=== PATIENT | female | born 1945 | race Caucasian/White ===

== ENCOUNTER 2024-08-29 06:10 | Inpatient (IN) | payer MEDICARE, SELFPAY ==
[2024-08-29] VITALS (21 sets, daily range): BP systolic 103–168; BP diastolic 63–116; PULSE 73–125; RESP 18–30; TEMP 36.4–37; O2SAT 84–99; BMI 22.3; BMI 26.2
--- NOTE | 2024-08-29 06:10 | ECG_ITS ---
APPROVED REPORT Exam: Resting ECG HR:110 bpm ECG Measurements Heart Rate 110 AXES QRSd 143 QRS 70 QT 389 T -67 QTc 454 Conclusion ATRIAL FIBRILLATION WITH RAPID VENTRICULAR RESPONSE LEFT BUNDLE BRANCH BLOCK [120+ ms QRS DURATION, 80+ ms Q/S IN V1/V2, 85+ ms R IN I/aVL/V5/V6] ABNORMAL ECG INTERPRETATION BASED ON A DEFAULT AGE OF 41 YEARS UNCONFIRMED REPORT Electronically signed by : Jose Alejandro Andrea MD 08/30/2024 08:46:59
--- NOTE | 2024-08-29 06:10 | XR_ITS ---
PROCEDURE INFORMATION: Exam: XR Chest Exam date and time: 08/29/2024 6:51 AM Age: 79 years old Clinical indication: Shortness of breath and tachypnea; Additional info: SOA TECHNIQUE: Imaging protocol: Radiologic exam of the chest. Views: 1 view. COMPARISON: No relevant prior studies available. FINDINGS: Lungs: Streaky airspace opacities in lower lobes could be attributed to atelectasis versus developing pneumonia/aspiration in the appropriate clinical context. Pleural spaces: Unremarkable. No pleural effusion. No pneumothorax. Heart/Mediastinum: Cardiomegaly noted. Bones/joints: Unremarkable. IMPRESSION: Streaky airspace opacities in lower lobes could be attributed to atelectasis versus developing pneumonia/aspiration in the appropriate clinical context.
--- NOTE | 2024-08-29 06:17 | CT_ITS ---
PROCEDURE INFORMATION: Exam: CTA Chest With Contrast Exam date and time: 08/29/2024 7:40 AM Age: 79 years old Clinical indication: Shortness of breath and tachypnea; Additional info: SOA hypoxia tachy copd. Flu exposure TECHNIQUE: Imaging protocol: Computed tomographic angiography of the chest with contrast. Exam focused on the arteries. 3D rendering (Not supervised by radiologist): MIP and/or 3D reconstructed images were created by the technologist. Radiation optimization: All CT scans at this facility use at least one of these dose optimization techniques: automated exposure control; mA and/or kV adjustment per patient size (includes targeted exams where dose is matched to clinical indication); or iterative reconstruction. Contrast material: ISOVUE 370; Contrast volume: 70 ml; Contrast route: INTRAVENOUS (IV); COMPARISON: CR XR CHEST PORTABLE 08/29/2024 6:51 AM FINDINGS: Pulmonary arteries: No evidence of pulmonary embolus to the segmental level. Aorta: No aneurysm of the ascending aorta. No dissection of the aorta. 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 Lungs: Mild panlobular emphysematous changes Pleural spaces: Unremarkable. No pneumothorax. No pleural effusion. Heart: There is calcification of the aortic valve annulus. There is calcification of the mitral valve annulus. Coronary arteries: Coronary artery calcifications may indicate coronary artery disease. Lymph nodes: 4 x 1.7 cm well-delineated mass anterior to the ascending aorta measures 50 Hounsfield units (series 5, image 56). This may represent lymphadenopathy or tumor.. Gallbladder and biliary ducts: The common duct is prominent. It measures 22 millimeters. This may be due to post cholecystectomy state and elderly status. However, if biliary obstruction is suspected clinically, recommend further evaluation Pancreas: Pancreatic atrophy Kidneys: Nonobstructing renal calculi. Severe left renal atrophy. 2 cm simple cyst left kidney . No follow-up imaging recommended . Bones/joints: Unremarkable. No acute fracture. Soft tissues: Unremarkable. IMPRESSION: 1. No evidence of pulmonary embolus to the segmental level. 2. No aneurysm of the ascending aorta. 3. No dissection of the aorta. 4. 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 5. 4 x 1.7 cm well-delineated mass anterior to the ascending aorta measures 50 Hounsfield units (series 5, image 56). This may represent lymphadenopathy or tumor.. COMMENTS: Consistent with the [employer]'s Incidental Findings Committee white paper (J Am Jer Radiol 2018): Any incidental renal lesion less than 1 cm or classified as too small to characterize, or any incidental cystic renal lesion characterized as simple-appearing, is likely benign. No follow-up imaging is recommended for these lesions per consensus recommendations based on imaging criteria.
--- NOTE | 2024-08-29 06:20 | [facility].EDCP ---
Discharge Plan Disposition Patient Disposition: Admitted Prescriptions Prescriptions: No Action metoprolol succinate 100 mg Tablet Extended Release 24 Hr 100 mg PO DAILY tramadol 50 mg Tablet 50 mg PO TID PRN (Reason: Pain, Moderate) famotidine 20 mg Tablet 20 mg PO DAILY gabapentin 300 mg Capsule 300 mg PO DAILY bumetanide 1 mg Tablet 1 mg PO DAILY rosuvastatin 20 mg Tablet 20 mg PO DAILY febuxostat 40 mg Tablet 40 mg PO DAILY Xarelto 15 mg Tablet 15 mg PO DAILY Referrals Follow up/Referrals: Mariam Chairez DO [Primary Care Provider] - See instructions Clinical Impressions Clinical Impression: Altered mental status, COPD exacerbation, Acute respiratory failure with hypoxia and hypercarbia Print Language Print Language: [place] Discharge ED Provider: Misa Quezada HPI <Misa Quezada MD - Last Filed: 08/29/24 07:03> General Chief Complaint: Shortness of Breath/Dyspnea Stated Complaint: SOA Time Seen by Provider: 08/29/24 06:10 History of Present Illness HPI narrative: 79-year-old female with a history of COPD reportedly on 2 L nasal cannula at home presents to the ER with EMS for shortness of breath. According to EMS, family on scene reported that the patient has been having cough and shortness of breath for the last few days but woke up around midnight with worsening symptoms. When EMS arrived patient was only saturating in the low 80s. They gave her 1 DuoNeb and 125 mg IV Solu-Medrol prior to arrival. Patient did not receive any other medications in route. They report that their twelve-lead showed a left bundle branch block. Patient reports she has been sick for the last 1 to 2 days with worsening cough, she reports shortness of breath. She denies chest pain, headache, dizziness, numbness, tingling, weakness, abdominal pain, nausea, vomiting, diarrhea, dysuria, hematuria, or other associated symptoms. Reportedly patient has an inoperable aortic aneurysm, she is not having chest pain, abdominal pain, neck pain, or any neurologic deficits aside from confusion. Patient's daughter presented to bedside later in the encounter and reports the aortic aneurysm is a small, approximately 3.5 cm abdominal aortic aneurysm. She reports that the patient gets most of her care at [place], most recent hospitalization was over the summer with pneumonia at [facility]. She also reports that influenza is going through their house and she believes the patient likely caught this. She states the patient has been sick for couple days but was refusing to come to the hospital until she got bad enough tonight she finally consented. She also reports that patient does have a cardiac history with multiple stents, unknown if she ever had an NV. Related Data Home Medications ?Medication ?Instructions ?Recorded ?Confirmed bumetanide 1 mg tablet 1 mg PO DAILY 08/29/24 08/29/24 famotidine 20 mg tablet 20 mg PO DAILY 08/29/24 08/29/24 febuxostat 40 mg tablet 40 mg PO DAILY 08/29/24 08/29/24 gabapentin 300 mg capsule 300 mg PO DAILY 08/29/24 08/29/24 metoprolol succinate 100 mg 100 mg PO DAILY 08/29/24 08/29/24 tablet,extended release 24 hr rivaroxaban 15 mg tablet (Xarelto) 15 mg PO DAILY 08/29/24 08/29/24 rosuvastatin 20 mg tablet 20 mg PO DAILY 08/29/24 08/29/24 tramadol 50 mg tablet 50 mg PO TID PRN Pain, Moderate 08/29/24 08/29/24 Allergies Allergy/AdvReac Type Severity Reaction Status Date / Time No Known Allergies Allergy Verified 08/29/24 06:42 [facility] <Misa Quezada MD - Last Filed: 08/29/24 07:03> [facility] Disclaimer: The information contained in this section may have been updated after the patient was seen, as this information can be updated by other users. Social History (Updated 08/29/24 @ 07:03 by Misa Quezdaa MD) Smoking Status: Never smoker alcohol intake: never current occupational status: other Travel in the last 8 weeks: None Have you lived/traveled outside [place] in past 30 days?: No Contact w/someone who lives/traveled outside US past 30 days?: No Exposure to someone with infectious disease in past 14 days?: No Do you have a fever (greater than 100.4 F or 38 C)?: No Have you tested positive for COVID-19: No Exposed to someone with COVID-19 in past 14 days?: No Do you have a sore throat?: No Do you have a cough?: No Do you have any weakness?: No Do you have any diarrhea?: No Are you experiencing any unusual bleeding?: No Do you have any muscle aches/pain?: No Do you have any abdominal pain?: No Are you experiencing loss of taste or smell?: No <Misa Quezada MD - Last Filed: 08/29/24 07:03> ROS Obtained: Yes Systems reviewed as appropriate & no additional complaints except as documented Per HPI Physical Exam <Misa Quezada MD - Last Filed: 08/29/24 07:03> General General appearance: alert Comment: Pursed lip breathing, ill-appearing Head Head exam: atraumatic and normocephalic Eye Eye exam: Present PERRL and EOMI ENT ENT exam: Present mucous membranes moist and other (Nasal cannula in place) Neck Neck exam: Present normal inspection, full ROM and trachea midline Chest Chest inspection: Present symmetric chest wall rise; Absent tenderness Respiratory Respiratory exam: Present respiratory distress, wheezes (Faint end expiratory) and other (Saturating 82 to 84% on 3 L nasal cannula); Absent normal lung sounds bilaterally (Significantly diminished breath sounds throughout; pursed lip breathing, speaking in short sentences) or stridor Cardiovascular Cardiovascular exam: Present normal rhythm and bradycardia Abdominal Exam Abdominal exam: Present soft; Absent distention or tenderness Extremities Exam Extremities exam: Present full ROM; Absent edema Neurological Exam Neurological exam: Present alert and oriented X3; Absent motor sensory deficit Psychiatric Psychiatric exam: Present normal affect and normal mood Skin Skin exam: Present warm and dry HEART Score <Misa Quezada MD - Last Filed: 08/29/24 07:03> HEART Score HEART Score assessment performed?: No Procedures <Misa Quezada MD - Last Filed: 08/29/24 07:03> Miscellaneous Procedure Procedure Performed: Limited Cardiac Ultrasound Indication: Shortness of breath Identified cardiac views: [-Cardiac parasternal long axis] [-Cardiac parasternal short axis] [-Cardiac apical four-chamber] [-Cardiac subxiphoid] Subxiphoid was the best view with patient's anatomy Findings: Cardiac activity present, patient has wall motion abnormality along the septum, no pericardial effusion, no right heart strain, suspect reduced ejection fraction, myocardium of the left ventricle appears thickened Impression: - Cardiac activity present, patient has wall motion abnormality along the septum, no pericardial effusion, no right heart strain, suspect reduced ejection fraction, myocardium of the left ventricle appears thickened Images were saved to permanent archive The study was technically adequate CPT: 52636 This study was performed by me, and I personally interpreted all images/videos. Based on my clinical judgement, these images were adequate and did not necessitate further imaging. Limited lung ultrasound A focused ultrasound exam of the pleural spaces was performed to evaluate for pneumothorax, pulmonary edema, pleural effusion and/or consolidation. The ultrasound was performed with the following indications, as noted in the H&P: Shortness of breath, hypoxia Identified structures: Bilateral thoracic cavities were examined. Findings: Lung sliding: -Present bilaterally B-lines: Present in the bilateral anterior and lateral lung wilkerson Pleural effusion: -Absent bilaterally Consolidation: Absent bilaterally Impression: - Pneumothorax absent bilaterally - Pleural effusion absent bilaterally - B-lines present bilaterally - Consolidation absent bilaterally Images were saved to permanent archive The study was technically adequate CPT 43492-07 This study was performed by me, and I personally interpreted all images/videos. Based on my clinical judgement, these images were adequate and did not necessitate further imaging. Critical Care <Misa Quezada MD - Last Filed: 08/29/24 07:03> Critical Care Time Critical Care Time: Yes Attestation: On 08/29/24, the high probability of a clinically significant, sudden or life threatening deterioration of the following system(s) (respiratory) required my full and direct attention, intervention and personal management. The time I documented below is in addition to time spent performing reported procedures but includes the following listed in this critical care notation. Total Time Total Critical Care Time: 35 <Steff Mittal MD - Last Filed: 08/29/24 08:04> Total Time Total Critical Care Time: 65 Medical Decision Making <Misa Quezada MD - Last Filed: 08/29/24 07:03> [place] Inquiry Pt receiving controlled substance: No Vital Signs Vital Signs: 08/29/24 06:10 08/29/24 06:50 08/29/24 06:50 Temperature 98.1 F Temperature Source Oral Pulse Rate 125 H Pulse Rate [Radial] 115 H Respiratory Rate 26 H 26 H Blood Pressure 168/116 H Blood Pressure [Right Arm] 159/108 H Blood Pressure Mean [Right Arm] 125 Blood Pressure Position Sitting Blood Pressure Position [Right Arm] Supine 02 Sat by Pulse Oximetry 84 L 95 Oxygen Delivery Method Nasal Cannula BiPAP Oxygen Flow Rate (LPM) 3 Fraction of Inspired Oxygen 50 08/29/24 07:00 08/29/24 08:00 Temperature Temperature Source Pulse Rate 112 H 102 H Pulse Rate [Radial] Respiratory Rate Blood Pressure 103/63 L 157/95 H Blood Pressure [Right Arm] Blood Pressure Mean [Right Arm] Blood Pressure Position Blood Pressure Position [Right Arm] 02 Sat by Pulse Oximetry 94 L 99 Oxygen Delivery Method BiPAP BiPAP Oxygen Flow Rate (LPM) Fraction of Inspired Oxygen Lab Data Labs: Lab Results 08/29/24 06:10: VBG pH 7.28 L, VBG pCO2 65.8 H, VBG pO2 47.6 H, VBG HCO3 29.9, VBG Total CO2 32.0 H, VBG O2 Saturation 81.7 H, VBG Base Excess 3.1 H, VBG Lactic Acid 2.1 H 08/29/24 06:25: WBC 5.6, RBC 4.79, Hgb 14.5, Hct 45.6, MCV 95.2, MCH 30.3, MCHC 31.8, RDW 13.4, Plt Count 130 L, MPV 9.6, Neut % (Auto) 71.4, Lymph % (Auto) 8.3 L, Hooker % (Auto) 19.6 H, Eos % (Auto) 0.0 L, Baso % (Auto) 0.5, Neut # (Auto) 4.0, Lymph # (Auto) 0.5 L, Hooker # (Auto) 1.1 H, Eos # (Auto) 0.0, Baso # (Auto) 0.0, PT 12.3, INR 1.11 H, Sodium 139, Potassium 4.5, Chloride 97 L, Carbon Dioxide 33 H, Anion Gap 13.5, BUN 30 H, Creatinine 1.20 H, Estimated Creat Clear 36, Estimated GFR 43 L, Est GFR ( Amer) 53 L, Glucose 140 H, Lactate 1.8, Calcium 9.0, Total Bilirubin 0.8, AST 32, ALT 21, Alkaline Phosphatase 96, Troponin I 0.02, Total Protein 6.7, Albumin 4.2, Globulin 2.5, Albumin/Globulin Ratio 1.7 08/29/24 06:25 08/29/24 06:25 Response Orders (Tests/Meds): ED MEDICATIONS Generic Name Dose Route Start Last Admin Trade Name Freq PRN Reason Stop Dose Admin Albuterol/Ipratropium 9 ml 08/29/24 07:56 Ipratropium/Albuterol 3 Ml [facility] 08/29/24 07:57 ONCE ONE Ceftriaxone Sodium 1 gm/ 50 mls @ 100 mls/hr 08/29/24 07:56 Sodium Chloride IV 08/29/24 08:25 ONCE ONE Azithromycin 500 mg/ Sodium 250 mls @ 250 mls/hr 08/29/24 07:56 Chloride IV 08/29/24 07:57 ONCE ONE Magnesium Sulfate 2 gm in 50 mls @ 50 mls/hr 08/29/24 07:56 Magnesium Sulfate 2gm/50ml Premix IV 08/29/24 08:55 ONCE ONE Iopamidol 70 ml 08/29/24 07:50 08/29/24 07:51 Iopamidol-370 (76%);100ml Bottle IV 08/29/24 07:51 70 ml ONCE ONE Administration Sodium Chloride 50 ml 08/29/24 07:50 08/29/24 07:51 0.9 % Sodium Chloride 50 Ml Vial IV 08/29/24 07:51 50 ml ONCE ONE Administration Sodium Chloride 10 ml 08/29/24 07:50 08/29/24 07:52 Sodium Chloride 0.9% 10ml Syr (Rad Only) IV 09/28/24 07:49 10 ml NEEDED PRN Administration Maintain IV Site Discontinued Medications Generic Name Dose Route Start Last Admin Trade Name Guru PRN Reason Stop Dose Admin Albuterol/Ipratropium 9 ml 08/29/24 06:16 08/29/24 06:48 Ipratropium/Albuterol 3 Ml [facility] 08/29/24 06:17 9 ml ONCE ONE Administration Nitroglycerin 0.4 mg 08/29/24 06:40 08/29/24 06:44 Nitroglycerin 0.4mg Sl Tablet SL 08/29/24 06:41 0.4 mg ONCE ONE Administration ORDERS Category Date Time Status CT angio chest PE protocol Stat Cat Scan 08/29/24 06:[address] head/brain wo con Stat Cat Scan 08/29/24 06:33 Taken CXR --portable [XR chest portable] Stat Exams 08/29/24 06:10 Completed POCUS Point of Care (ER Only) Stat Exams 02/16/25 06:21 Ordered BNP [NT Pro Brain Natriuretic Pep.] Stat Lab 08/29/24 07:02 Ordered CBC w/Auto Diff [Complete Blood Count Auto Diff] Stat Lab 08/29/24 06:25 Completed CMP [Comprehensive Metabolic Panel] Stat Lab 08/29/24 06:25 Completed Full Resp Panel w/COVID ([facility]) Routine Lab 08/29/24 06:25 Received Lactic Acid Stat Lab 08/29/24 06:25 Completed PT INR [Prothrombin Time INR] Stat Lab 08/29/24 06:25 Completed Trop I [Troponin I] Stat Lab 08/29/24 06:25 Completed Troponin I Q3H Lab 08/29/24 09:15 Ordered Troponin I Q3H Lab 08/29/24 12:15 Ordered Urinalysis and Microscopic Stat Lab 08/29/24 06:33 Ordered Blood Culture Stat Micro 08/29/24 06:33 Received VBG [Venous Blood Gas] Stat RT 08/29/24 06:10 Completed ECG Request Stat Y 08/29/24 06:10 Ordered MDM Narrative Medical Decision Narrative: In summary, this 79-year-old female with a reported history of COPD likely not at goal therapy presents to the emergency department today with shortness of breath, cough, difficulty breathing. On initial evaluation patient is tachycardic but hypertensive, tachypneic, pursed lip breathing, diminished breath sounds throughout with end expiratory wheezing, trace bilateral lower extremity pitting edema, confused, oriented only to self, GCS 14 with no localizing neurologic deficits. Differential diagnosis includes but is not limited to ACS, PE, fluid overload, electrolyte abnormality, hypercarbia, COPD exacerbation, viral upper respiratory infection, pneumonia, pneumothorax, altered mental status could be related to intracranial bleed, urinary tract infection, among others. Based on these concerns, I ordered serum labs, cardiac workup, chest x-ray, VBG, urine studies. ECG personally interpreted demonstrates atrial fibrillation rapid ventricular response, rate 110, normal axis, normal QTc, patient has evidence of left bundle branch block, no previous study for comparison, no STEMI. [id number] ultrasound personally performed and interpreted at bedside demonstrates diminished septal squeeze, left ventricle appears thickened, ejection fraction is likely reduced based on the excursion of the mitral valve, patient has B-lines throughout the lung wilkerson as well concerning for fluid overload. Patient was only saturating in the low 80s on nasal cannula and was transition to nonrebreather, I called respiratory therapy for DuoNebs and BiPAP. Patient received DuoNebs initially for treatment. With the findings on ultrasound and her respiratory status, with her persistent hypertension, administered 1 dose of sublingual nitro. Labs personally reviewed demonstrate patient has respiratory acidosis with hypercarbia, hypoxia, lactic on VBG 2.1, patient is being started on BiPAP. No leukocytosis or anemia, mild thrombocytopenia with platelets 130. Reassessment while patient is receiving the DuoNebs demonstrates patient is having improved air movement, she is now exhibiting more wheezing, with her improved air movement I do appreciate Rales in the right lower lobe. XR personally interpreted demonstrates no pneumothorax, no obvious lobar infiltrate, patient does seem to have rightward shift Of the mediastinum and cardiac silhouette. Possible infiltrate along the right cardiac border. This will be better evaluated on CT imaging. Radiology read pending. We have attempted to contact [facility] to retrieve recent records for the patient. No records have been received at this time. Patient is breathing more comfortably on BiPAP with improved oxygenation. Her respiratory rate has improved as well. Mental status is clearing. Patient is now oriented to self and location, still disoriented to year. Patient handed off to Dr. Mittal physician shift change for further management and disposition pending additional labs and CT imaging. <Steff Mittal MD - Last Filed: 08/29/24 08:04> Vital Signs Vital Signs: 08/29/24 06:10 08/29/24 06:50 08/29/24 06:50 Temperature 98.1 F Temperature Source Oral Pulse Rate 125 H Pulse Rate [Radial] 115 H Respiratory Rate 26 H 26 H Blood Pressure 168/116 H Blood Pressure [Right Arm] 159/108 H Blood Pressure Mean [Right Arm] 125 Blood Pressure Position Sitting Blood Pressure Position [Right Arm] Supine 02 Sat by Pulse Oximetry 84 L 95 Oxygen Delivery Method Nasal Cannula BiPAP Oxygen Flow Rate (LPM) 3 Fraction of Inspired Oxygen 50 08/29/24 07:00 08/29/24 08:00 Temperature Temperature Source Pulse Rate 112 H 102 H Pulse Rate [Radial] Respiratory Rate Blood Pressure 103/63 L 157/95 H Blood Pressure [Right Arm] Blood Pressure Mean [Right Arm] Blood Pressure Position Blood Pressure Position [Right Arm] 02 Sat by Pulse Oximetry 94 L 99 Oxygen Delivery Method BiPAP BiPAP Oxygen Flow Rate (LPM) Fraction of Inspired Oxygen Lab Data Lab results reviewed: Yes I reviewed the patient's lab results. Labs: Lab Results 08/29/24 06:10: VBG pH 7.28 L, VBG pCO2 65.8 H, VBG pO2 47.6 H, VBG HCO3 29.9, VBG Total CO2 32.0 H, VBG O2 Saturation 81.7 H, VBG Base Excess 3.1 H, VBG Lactic Acid 2.1 H 08/29/24 06:25: WBC 5.6, RBC 4.79, Hgb 14.5, Hct 45.6, MCV 95.2, MCH 30.3, MCHC 31.8, RDW 13.4, Plt Count 130 L, MPV 9.6, Neut % (Auto) 71.4, Lymph % (Auto) 8.3 L, Hooker % (Auto) 19.6 H, Eos % (Auto) 0.0 L, Baso % (Auto) 0.5, Neut # (Auto) 4.0, Lymph # (Auto) 0.5 L, Hooker # (Auto) 1.1 H, Eos # (Auto) 0.0, Baso # (Auto) 0.0, PT 12.3, INR 1.11 H, Sodium 139, Potassium 4.5, Chloride 97 L, Carbon Dioxide 33 H, Anion Gap 13.5, BUN 30 H, Creatinine 1.20 H, Estimated Creat Clear 36, Estimated GFR 43 L, Est GFR ( Amer) 53 L, Glucose 140 H, Lactate 1.8, Calcium 9.0, Total Bilirubin 0.8, AST 32, ALT 21, Alkaline Phosphatase 96, Troponin I 0.02, Total Protein 6.7, Albumin 4.2, Globulin 2.5, Albumin/Globulin Ratio 1.7 Response Orders (Tests/Meds): ED MEDICATIONS Generic Name Dose Route Start Last Admin Trade Name Freq PRN Reason Stop Dose Admin Albuterol/Ipratropium 9 ml 08/29/24 07:56 Ipratropium/Albuterol 3 Ml Neb [facility] 08/29/24 07:57 ONCE ONE Ceftriaxone Sodium 1 gm/ 50 mls @ 100 mls/hr 08/29/24 07:56 Sodium Chloride IV 08/29/24 08:25 ONCE ONE Azithromycin 500 mg/ Sodium 250 mls @ 250 mls/hr 08/29/24 07:56 Chloride IV 08/29/24 07:57 ONCE ONE Magnesium Sulfate 2 gm in 50 mls @ 50 mls/hr 08/29/24 07:56 Magnesium Sulfate 2gm/50ml Premix IV 08/29/24 08:55 ONCE ONE Iopamidol 70 ml 08/29/24 07:50 08/29/24 07:51 Iopamidol-370 (76%);100ml Bottle IV 08/29/24 07:51 70 ml ONCE ONE Administration Sodium Chloride 50 ml 08/29/24 07:50 08/29/24 07:51 0.9 % Sodium Chloride 50 Ml Vial IV 08/29/24 07:51 50 ml ONCE ONE Administration Sodium Chloride 10 ml 08/29/24 07:50 08/29/24 07:52 Sodium Chloride 0.9% 10ml Syr (Rad Only) IV 09/28/24 07:49 10 ml NEEDED PRN Administration Maintain IV Site Discontinued Medications Generic Name Dose Route Start Last Admin Trade Name Freq PRN Reason Stop Dose Admin Albuterol/Ipratropium 9 ml 08/29/24 06:16 08/29/24 06:48 Ipratropium/Albuterol 3 Ml Neb [facility] 08/29/24 06:17 9 ml ONCE ONE Administration Nitroglycerin 0.4 mg 08/29/24 06:40 08/29/24 06:44 Nitroglycerin 0.4mg Sl Tablet SL 08/29/24 06:41 0.4 mg ONCE ONE Administration ORDERS Category Date Time Status CT angio chest PE protocol Stat Cat Scan 08/29/24 06:[address] head/brain wo con Stat Cat Scan 08/29/24 06:33 Taken CXR --portable [XR chest portable] Stat Exams 08/29/24 06:10 Completed POCUS Point of Care (ER Only) Stat Exams 08/29/24 06:21 Ordered BNP [NT Pro Brain Natriuretic Pep.] Stat Lab 08/29/24 07:02 Ordered CBC w/Auto Diff [Complete Blood Count Auto Diff] Stat Lab 08/29/24 06:25 Completed CMP [Comprehensive Metabolic Panel] Stat Lab 08/29/24 06:25 Completed Full Resp Panel w/COVID ([facility]) Routine Lab 08/29/24 06:25 Received Lactic Acid Stat Lab 08/29/24 06:25 Completed PT INR [Prothrombin Time INR] Stat Lab 08/29/24 06:25 Completed Trop I [Troponin I] Stat Lab 08/29/24 06:25 Completed Troponin I Q3H Lab 08/29/24 09:15 Ordered Troponin I Q3H Lab 08/29/24 12:15 Ordered Urinalysis and Microscopic Stat Lab 08/29/24 06:33 Ordered Blood Culture Stat Micro 08/29/24 06:33 Received VBG [Venous Blood Gas] Stat RT 08/29/24 06:10 Completed ECG Request Stat Y 08/29/24 06:10 Ordered MDM Narrative Medical Decision Narrative: In summary, this 79-year-old female with a reported history of COPD likely not at goal therapy presents to the emergency department today with shortness of breath, cough, difficulty breathing. On initial evaluation patient is tachycardic but hypertensive, tachypneic, pursed lip breathing, diminished breath sounds throughout with end expiratory wheezing, trace bilateral lower extremity pitting edema, confused, oriented only to self, GCS 14 with no localizing neurologic deficits. Differential diagnosis includes but is not limited to ACS, PE, fluid overload, electrolyte abnormality, hypercarbia, COPD exacerbation, viral upper respiratory infection, pneumonia, pneumothorax, altered mental status could be related to intracranial bleed, urinary tract infection, among others. Based on these concerns, I ordered serum labs, cardiac workup, chest x-ray, VBG, urine studies. ECG personally interpreted demonstrates atrial fibrillation rapid ventricular response, rate 110, normal axis, normal QTc, patient has evidence of left bundle branch block, no previous study for comparison, no STEMI. [id number] ultrasound personally performed and interpreted at bedside demonstrates diminished septal squeeze, left ventricle appears thickened, ejection fraction is likely reduced based on the excursion of the mitral valve, patient has B-lines throughout the lung wilkerson as well concerning for fluid overload. Patient was only saturating in the low 80s on nasal cannula and was transition to nonrebreather, I called respiratory therapy for DuoNebs and BiPAP. Patient received DuoNebs initially for treatment. With the findings on ultrasound and her respiratory status, with her persistent hypertension, administered 1 dose of sublingual nitro. Labs personally reviewed demonstrate patient has respiratory acidosis with hypercarbia, hypoxia, lactic on VBG 2.1, patient is being started on BiPAP. No leukocytosis or anemia, mild thrombocytopenia with platelets 130. Reassessment while patient is receiving the DuoNebs demonstrates patient is having improved air movement, she is now exhibiting more wheezing, with her improved air movement I do appreciate Rales in the right lower lobe. XR personally interpreted demonstrates no pneumothorax, no obvious lobar infiltrate, patient does seem to have rightward shift Of the mediastinum and cardiac silhouette. Possible infiltrate along the right cardiac border. This will be better evaluated on CT imaging. Radiology read pending. We have attempted to contact [facility] to retrieve recent records for the patient. No records have been received at this time. Patient is breathing more comfortably on BiPAP with improved oxygenation. Her respiratory rate has improved as well. Mental status is clearing. Patient is now oriented to self and location, still disoriented to year. Patient handed off to Dr. Mittal physician shift change for further management and disposition pending additional labs and CT imaging. This is Dr. Mittal I took over from Dr. Quezada at 7 AM. Patient's chest x-ray was performed which I personally interpreted which shows no evidence of definitive dense consolidation. CT scan of the patient's chest was performed I personally interpreted that as well there is no evidence of significant lung parenchymal abnormality such as pneumonia also no evidence of proximal or large PE. Radiology read is pending but I am not intervening further on that. I have ordered Rocephin azithromycin to treat for moderate to severe COPD exacerbation. Patient on my reassessment is still very tight but apparently she is significantly improved from when she first got here particular from a mental status standpoint. She is still mildly confused therefore we will keep her on BiPAP. Magnesium has been ordered as well and additional DuoNebs have been ordered also. Ultimately patient will need to remain on BiPAP. At this point I do not believe that this is primarily a cardiac related event she has no ischemic symptoms no chest pain on my evaluation she does have left bundle branch block but her troponin is negative. She also has no pulmonary edema that is noted on CT scan. This will primarily be treated as a COPD exacerbation right now. Dr. Quezada initially gave her some nitroglycerin suspecting that there may be some component of cardiac involvement but she got significantly hypotensive with this which rebounded after a few minutes but we will not proceed further with any nitroglycerin. Patient was admitted to hospital medicine for further management.
[2024-08-29] MEDS: IPRATROPIUM/ALBUTEROL 3 ML NEB 9 ML IH ×2 (06:30→06:48)
--- NOTE | 2024-08-29 06:33 | CT_ITS ---
PROCEDURE INFORMATION: Exam: CT Head Without Contrast Exam date and time: 08/29/2024 7:37 AM Age: 79 years old Clinical indication: Altered mental status/memory loss; Additional info: AMS TECHNIQUE: Imaging protocol: Computed tomography of the head without contrast. Radiation optimization: All CT scans at this facility use at least one of these dose optimization techniques: automated exposure control; mA and/or kV adjustment per patient size (includes targeted exams where dose is matched to clinical indication); or iterative reconstruction. COMPARISON: No relevant prior studies available. FINDINGS: Brain: There is a subcentimeter hyperdense structure in the right thalamus. Questionable minimal surrounding vasogenic edema. There are scattered hypodensities in the periventricular and subcortical white matter. The appearance is nonspecific, but most likely represents chronic small vessel disease in a person of this age. There is a small region of tissue loss in the left basal ganglia region. Cerebral ventricles: The ventricles, sulci and cisterns are normal in size and configuration for patient's age. No hydrocephalus or midline structure shift Pituitary gland and sella: Sellar/parasellar structures, craniocervical junction and orbits are unremarkable Paranasal sinuses: Visualized sinuses are unremarkable. No fluid levels. Mastoid air cells: Visualized mastoid air cells are well aerated. Bones: No calvarial fracture Soft tissues: Unremarkable. IMPRESSION: 1. Subcentimeter hypodense structure in the right thalamus. Considerations include acute, punctate hemorrhage, small cavernoma versus less likely mineralization. 2. There is a small region of tissue loss in the left basal ganglia region.
[2024-08-29 06:36] LABS: VBG Base Excess 3.1 mmol/L (-2.4-2.3); VBG HCO3 29.9 mmol/L (23-30); VBG Oxygen Saturation 81.7 % (50-70); VBG PH 7.28 mmol/L (7.31-7.41); VBG PO2 47.6 mmol/L (28-40)
[2024-08-29 06:36] LABS: Adenovirus,PCR Not Detected (NotDetected); Bordetella Pertussis Not Detected (NotDetected); Chlamydophila Pneumoniae, PCR Not Detected (NotDetected); Coronavirus 19, PCR Not Detected (NotDetected); Coronavirus 229E Not Detected (NotDetected); Coronavirus NL63 Not Detected (NotDetected); Coronavirus OC43 Not Detected (NotDetected); Coronovirus HKU1,PCR Not Detected (NotDetected); Human Metapneumovirus Not Detected (NotDetected); Influenza A, PCR Not Detected (NotDetected); Influenza AH1, 2009 Not Detected (NotDetected); Influenza AH1, PCR Not Detected (NotDetected); Influenza B, PCR Not Detected (NotDetected); Mycoplasma Pneumoniae, PCR Not Detected (NotDetected); Parainfluenza 1, PCR Not Detected (NotDetected); Parainfluenza 2, PCR Not Detected (NotDetected); Parainfluenza 3, PCR Not Detected (NotDetected); Parainfluenza 4, PCR Not Detected (NotDetected); Respiratory Syncytial Virus Not Detected (NotDetected); Rhinovirus/Enterovirus Not Detected (NotDetected)
--- NOTE | 2024-08-29 06:36 | PC.NURSE ---
2 sets of blood cultures drawn and sent to lab. Blue band placed on pt.
[2024-08-29 06:39] LABS: Basophils % 0.5 % (0.1-2.0); Hematocrit 45.6 % (37.0-47.0); Hemoglobin 14.5 g/dL (12.2-16.2); Lymphocytes # 0.5 K/mm3 (0.7-4.5); Lymphocytes % 8.3 % (10-50); Mean Corpuscular HGB Conc 31.8 g/dL (31.8-35.4); Mean Corpuscular Hemoglobin 30.3 pg (27.0-31.2); Mean Corpuscular Volume 95.2 fl (81-99); Mean Platelet Volume 9.6 fl (7.4-10.4); Monocytes # 1.1 K/mm3 (0.1-1.0); Monocytes % 19.6 % (1.7-9.3); Neutrophils % 71.4 % (37.0-80.0); Platelet Count 130 K/mm3 (142-424); Red Blood Count 4.79 M/mm3 (4.20-5.40); Red Cell Distribution Width 13.4 % (11.5-17.5); White Blood Count 5.6 K/mm3 (4.8-10.8)
[2024-08-29 06:39] LABS: Lactate Venous 2.1 mmol/L (0.4-2.0); VBG PCO2 65.8 mmol/L (35-51)
[2024-08-29] MEDS: NITROGLYCERIN 0.4MG SL TABLET 0.4 MG SL (06:44)
[2024-08-29 06:46] LABS: Albumin Level 4.2 g/dl (3.5-5.0); Chloride 97 mmol/L (98-107); Potassium 4.5 mmoL/L (3.5-5.1); Sodium 139 mmol/L (136-145)
--- NOTE | 2024-08-29 06:46 | PC.NURSE ---
MD Quezada notified of VBG results.
[2024-08-29 06:49] LABS: Alanine Aminotransferase 21 U/L (12-78); Albumin/Globulin Ratio 1.7 (1.1-1.8); Alkaline Phosphatase 96 U/L (38-126); Anion Gap 13.5 mEq/L (5-15); Aspartate Amino Transferase 32 U/L (14-36); Bilirubin,Total 0.8 mg/dl (0.2-1.3); Blood Urea Nitrogen 30 mg/dl (7-17); Carbon Dioxide 33 mmol/L (22.0-30.0); Creatinine Clearance Estimated 36 mL/min (50-200); Estimated Glomerular Filt Rate 43 ml/min (>60); GFR (African American) 53 ML/MIN (>60); Globulin 2.5 g/dL (1.3-3.2); Glucose 140 mg/dl (74-100); Total Protein,Serum 6.7 g/dl (6.3-8.2)
--- NOTE | 2024-08-29 06:49 | PC.NURSE ---
resp at the bedside to place patient on bipap machine.
[2024-08-29 06:50] LABS: INR 1.11 (0.9-1.1); Lactic Acid 1.8 mmol/L (0.7-2.1); Prothrombin Time 12.3 seconds (10.1-12.5)
--- NOTE | 2024-08-29 06:52 | PC.NURSE ---
pt placed on BIPAP by Evelyn ROWAN. settings- 26/02 RR 22 50% FIO2
[2024-08-29 07:01] LABS: Troponin I 0.02 ng/ml (0.00-0.034)
--- NOTE | 2024-08-29 07:11 | PC.NURSE ---
called [facility] in [place] for recent medical records on pt i was transfered to the staff for medical records on weekends and left a voicemail to return my call at ext [phone]. i will attempt to call back if no call is returned by 8:00
--- NOTE | 2024-08-29 07:34 | PC.NURSE ---
pt is at ct
--- NOTE | 2024-08-29 07:44 | PC.NURSE ---
pt arrived back to room from ct
[2024-08-29] MEDS: IOPAMIDOL-370 (76%);100ML BOTTLE 70 ML IV (07:51)
[2024-08-29] MEDS: 0.9 % SODIUM CHLORIDE 50 ML VIAL IV (07:51)
[2024-08-29] MEDS: SODIUM CHLORIDE 0.9% 10ML SYR (RAD ONLY) 10 ML IV (07:52)
--- NOTE | 2024-08-29 07:55 | PC.NURSE ---
called [facility] again to check on status of medical records staff calling but the sliver machine operator states that it is a weekend and the check voicemails often. I asked to speak with a oil house attendant to see of they could assist me and she stated they had a charge nurse and i have left my name number and ext, pt and name and brief message of what i need. I am waiting for a call back from charge nurse at [facility] in [place]
--- NOTE | 2024-08-29 07:59 | PC.NURSE ---
ON PHONE WITH HOSPITALIST
--- NOTE | 2024-08-29 08:00 | PC.NURSE ---
ROBINSON CALLED TO SPEAK WITH
--- NOTE | 2024-08-29 08:03 | PC.NURSE ---
home housekeeper notified of bed request
--- NOTE | 2024-08-29 08:09 | PC.NURSE ---
st Yeung charge nurse from [place] called said pt had a vascular scan done in 07/06 and they have a visit to er in and february 2024. I asked for md rogers note and labs from those visit along with the vascular report as well
[2024-08-29 08:22] LABS: Influenza AH3,PCR Detected (NotDetected)
--- NOTE | 2024-08-29 08:23 | PC.NURSE ---
Report called to Lilliam SANTOS in the ICU
[2024-08-29] MEDS: MAGNESIUM SULFATE IN WATER 2 GM/50 ML PIGGYBACK IV (08:24)
[2024-08-29 08:28] LABS: NT Pro Brain Natriuretic Pep. 20500 pg/mL (0-450)
[2024-08-29] MEDS: CEFTRIAXONE SODIUM 1 GM in 0.9 % SODIUM CHLORIDE 50 ML IV (08:28)
--- NOTE | 2024-08-29 09:12 | ECG_ITS ---
APPROVED REPORT Exam: Resting ECG HR:96 bpm ECG Measurements Heart Rate 96 AXES QRSd 153 QRS 53 QT 429 T 194 QTc 483 Conclusion ATRIAL FIBRILLATION WITH ABERRANT CONDUCTION OR VENTRICULAR PREMATURE COMPLEXES LEFT BUNDLE BRANCH BLOCK [120+ ms QRS DURATION, 80+ ms Q/S IN V1/V2, 85+ ms R IN I/aVL/V5/V6] ABNORMAL ECG UNCONFIRMED REPORT Electronically signed by : Jose Alejandro Andrea MD 08/30/2024 08:46:42
[2024-08-29] MEDS: BUMETANIDE 1MG/4ML VIAL 1 MG IV (10:00)
[2024-08-29] MEDS: OSELTAMIVIR PHOSPHATE 6MG/ML ORAL SUSP 60ML 30 MG PO ×2 (10:03→22:16)
[2024-08-29] MEDS: AZITHROMYCIN 500 MG in 0.9 % SODIUM CHLORIDE 250 ML 250 MG IV (10:03)
[2024-08-29 10:38] LABS: Reflex Lactic Add Lactic Reflex
[2024-08-29] MEDS: LEVALBUTEROL 1.25MG/3ML NEB 1.25 MG IH ×3 (10:52→21:45)
[2024-08-29] MEDS: IPRATROPIUM BROMIDE 0.5 MG/2.5ML SOLUTION IH ×3 (10:52→21:45)
[2024-08-29] MEDS: BUDESONIDE 0.5MG/2ML NEB 0.5 MG IH ×2 (10:53→18:28)
[2024-08-29 11:18] LABS: Troponin I 0.03 ng/ml (0.00-0.034)
[2024-08-29 11:31] LABS: VBG Base Excess 1.2 mmol/L (-2.4-2.3); VBG HCO3 26.9 mmol/L (23-30); VBG Oxygen Saturation 98.9 % (50-70); VBG PH 7.34 mmol/L (7.31-7.41); VBG PO2 144.9 mmol/L (28-40); VBG Total CO2 28.5 mmol/L (23-27)
[2024-08-29 11:33] LABS: Lactate Venous 2.8 mmol/L (0.4-2.0); VBG PCO2 51.2 mmol/L (35-51)
[2024-08-29 12:36] LABS: Microscopic, Urine URINE MICROSCOPIC (MICROSCOPIC)
[2024-08-29 12:43] LABS: Appearance,Urine CLEAR (Clear); Bilirubin,Urine Negative (Negative); Blood, Urine 1+ (Negative); Color,Urine YELLOW (Yellow); Glucose,Urine (UA) Negative (Negative); Ketones,Urine Negative (Negative); Leukocyte Esterase,Urine Negative (Negative); Nitrate,Urine Negative (Negative); Protein,Urine 2+ (Negative); Specific Gravity, Urine 1.025 (1.005-1.030); Urobilinogen,Urine 0.2 EU/dl (0.2)
[2024-08-29 13:01] LABS: Troponin I 0.03 ng/ml (0.00-0.034)
[2024-08-29 13:35] LABS: Squamous Epithelial Cell,Urine Occasional #/hpf (0-5)
--- NOTE | 2024-08-29 14:22 | EXP.HP ---
History of Present Illness *Admission Date: 08/29/24 *Reason for visit:: Shortness of breath *History of present illness: Brittney Sierra is a 79-year-old female with a medical history significant for COPD, HFrEF, unruptured AAA, medication nonadherence presents with progressive shortness of breath, altered mentation. She states been going on for several days, denies chest pain, abdominal pain. Patient is a poor historian and has a history of medical nonadherence, will follow-up records from [facility]. Workup in the ED significant for VBG showing acute hypercapnic respiratory failure pCO2 65 pH 7.28, BNP 20,500, influenza A positive. CTA chest reveals mass anterior to the ascending aorta, unruptured and known AAA but no acute intrapulmonary findings. Patient was initiated on DuoNeb treatments and BiPAP with gradual improvement in symptoms. Case discussed with ED provider and decision was made to admit patient for acute metabolic encephalopathy, hypercapnic respiratory failure, COPD exacerbation. [facility] Disclaimer: The information contained in this section may have been updated after the patient was seen, as this information can be updated by other users. Medical History (Updated 08/29/24 @ 09:51 by Lilliam Upton RN) AAA (abdominal aortic aneurysm) HFrEF (heart failure with reduced ejection fraction) Hyperparathyroidism Purpura senilis Peripheral artery disease Renal artery stenosis Allergies Pulmonary hypertension Nonrheumatic mitral valve regurgitation Coronary artery disease Renal osteodystrophy Thoracic aorta atherosclerosis Atrial fibrillation Kidney stone Chronic kidney disease Pneumonia COPD (chronic obstructive pulmonary disease) History of stroke Dementia Osteoarthritis Hemorrhoids Aneurysm History of cataract Hyperlipidemia Hypertension History of left heart catheterization (LHC) Surgical History (Updated 08/29/24 @ 09:51 by Lilliam Upton RN) H/O ovarian cystectomy H/O tubal ligation History of cholecystectomy Family History (Updated 08/29/24 @ 08:53 by Lilliam Upton RN) Other Family history of cancer Social History (Updated 08/29/24 @ 08:54 by Lilliam Upton, TOM) Smoking Status: Current every day smoker alcohol intake: never current occupational status: retired and other Travel in the last 8 weeks: None Have you lived/traveled outside US in past 30 days?: No Contact w/someone who lives/traveled outside US past 30 days?: No Exposure to someone with infectious disease in past 14 days?: No Do you have a fever (greater than 100.4 F or 38 C)?: No Have you tested positive for COVID-19: No Exposed to someone with COVID-19 in past 14 days?: No Do you have a sore throat?: No Do you have a cough?: No Do you have any weakness?: No Do you have any diarrhea?: No Are you experiencing any unusual bleeding?: No Do you have any muscle aches/pain?: No Do you have any abdominal pain?: No Are you experiencing loss of taste or smell?: No Other Medical History Have you received the Flu Vaccine for this season: No Have you received the Pneumonia Vaccine: No Meds Home Medications and Allergies Home Medications ?Medication ?Instructions ?Recorded ?Confirmed ?Type bumetanide 1 mg tablet 1 mg PO DAILY 08/29/24 08/29/24 History famotidine 20 mg tablet 20 mg PO DAILY 08/29/24 08/29/24 History febuxostat 40 mg tablet 40 mg PO DAILY 08/29/24 08/29/24 History gabapentin 300 mg capsule 300 mg PO DAILY 08/29/24 08/29/24 History levocetirizine 5 mg tablet 5 mg PO BID 08/29/24 08/29/24 History metoprolol succinate 100 mg 100 mg PO DAILY 08/29/24 08/29/24 History tablet,extended release 24 hr rivaroxaban 15 mg tablet (Xarelto) 15 mg PO QPMWITHMEAL 08/29/24 08/29/24 History rosuvastatin 20 mg tablet 20 mg PO HS 08/29/24 08/29/24 History tramadol 50 mg tablet 50 mg PO TID PRN Pain, Moderate 08/29/24 08/29/24 History New Prescriptions to Start Prescriptions: Allergies Allergy/AdvReac Type Severity Reaction Status Date / Time bee venom protein (honey bee) Allergy Hives Verified 08/29/24 09:45 hydromorphone (From Dilaudid) Allergy Rash Verified 08/29/24 09:45 Exam Data for Last 24 hours Vital signs and Labs for Last 24 Hours: Temp Pulse Resp BP Pulse Ox O2 Del Method O2 Flow Rate 97.7 F 98 H 23 149/88 H 90 L Nasal Cannula 2 08/29/24 12:00 08/29/24 12:46 08/29/24 12:00 08/29/24 12:00 08/29/24 12:00 08/29/24 12:00 08/29/24 12:00 FiO2 50 08/29/24 08:27 Laboratory Results - last 24 hr 08/29/24 06:00: NT-Pro-B Natriuret Pep H 08/29/24 06:10: VBG pH 7.28 L, VBG pCO2 65.8 H, VBG pO2 47.6 H, VBG HCO3 29.9, VBG Total CO2 32.0 H, VBG O2 Saturation 81.7 H, VBG Base Excess 3.1 H, VBG Lactic Acid 2.1 H 08/29/24 06:25: WBC 5.6, RBC 4.79, Hgb 14.5, Hct 45.6, MCV 95.2, MCH 30.3, MCHC 31.8, RDW 13.4, Plt Count 130 L, MPV 9.6, Neut % (Auto) 71.4, Lymph % (Auto) 8.3 L, [place] % (Auto) 19.6 H, Eos % (Auto) 0.0 L, Baso % (Auto) 0.5, Neut # (Auto) 4.0, Lymph # (Auto) 0.5 L, [place] # (Auto) 1.1 H, Eos # (Auto) 0.0, Baso # (Auto) 0.0, PT 12.3, INR 1.11 H, Sodium 139, Potassium 4.5, Chloride 97 L, Carbon Dioxide 33 H, Anion Gap 13.5, BUN 30 H, Creatinine 1.20 H, Estimated Creat Clear 36, Estimated GFR 43 L, Est GFR ( Amer) 53 L, Glucose 140 H, Lactate 1.8, Calcium 9.0, Total Bilirubin 0.8, AST 32, ALT 21, Alkaline Phosphatase 96, Troponin I 0.02, Total Protein 6.7, Albumin 4.2, Globulin 2.5, Albumin/Globulin Ratio 1.7, Chlamy pneumoniae PCR Not detected, Adenovirus (PCR) Not detected, B. pertussis DNA (PCR) Not detected, Coronavirus OC43 (PCR) Not detected, Coronavirus HKU1 (PCR) Not detected, Coronavirus 229E (PCR) Not detected, SARS-CoV-2 (PCR) Not detected, Coronavirus NL63 (PCR) Not detected, Human Metapneumovir PCR Not detected, Influenza A (H1) PCR Not detected, Influ A (H1N1/09) PCR Not detected, Influenza A (H3) PCR Detected A, Influenza Type A (PCR) Not detected, Influenza Type B (PCR) Not detected, M. pneumoniae (PCR) Not detected, Parainfluenza 1 (PCR) Not detected, Parainfluenza 2 (PCR) Not detected, Parainfluenza 3 (PCR) Not detected, Parainfluenza 4 (PCR) Not detected, RSV (PCR) Not detected, Entero/Rhino (PCR) Not detected 08/29/24 09:36: Troponin I 0.03 08/29/24 11:00: VBG pH 7.34, VBG pCO2 51.2 H, VBG pO2 144.9 H, VBG HCO3 26.9, VBG Total CO2 28.5 H, VBG O2 Saturation 98.9 H, VBG Base Excess 1.2, VBG Lactic Acid 2.8 H 08/29/24 11:09: Lactate 2.0 08/29/24 12:15: Troponin I 0.03 08/29/24 12:29: Urine Color Yellow, Urine Appearance Clear, Urine pH 6.0, Ur Specific [place] 1.025, Urine Protein 2+ A, Urine Glucose (UA) Negative, Urine Ketones Negative, Urine Blood 1+ A, Urine Nitrate Negative, Urine Bilirubin Negative, Urine Urobilinogen 0.2, Ur Leukocyte Esterase Negative, Urine RBC 3-5, Urine WBC None, Ur Squamous Epith Cells Occasional, Urine Bacteria None I & O for Last 24 hours: Intake & Output 08/26/24 08/27/24 08/28/24 08/29/24 23:59 23:59 23:59 23:59 Intake Total 60 / 60 Output Total 350 / 350 Balance -290 / -290 Weight 67.217 kg Constitutional Constitutional: no acute distress *Routine HEENT Exam Head: Present normocephalic Eye: Present EOMI and PERRL ENT: Present mucous membranes moist *Routine Neck Exam Neck: Present supple; Absent lymphadenopathy *Routine Respiratory Exam Respiratory: Present wheezes and diminished air movement; Absent CTA bilaterally *Routine Cardiovascular Exam Cardiovascular: Present RRR *Routine Abdominal Exam Abdominal: Present soft and normoactive bowel sounds; Absent tenderness *Routine Rectal Exam Rectal:: deferred *Routine Genitalia Exam Genitalia:: deferred *Routine Extremities Exam Extremities: Absent cyanosis, clubbing or edema *Routine Skin Exam Skin: Present warm; Absent rash *Routine Neurological Exam Neurological: Present alert and oriented X3 Assessment and Plan *Assessment and plan (1) Acute respiratory failure with hypoxia and hypercarbia: Status: Acute Category: Medical Code(s): J96.01 - Acute respiratory failure with hypoxia; J96.02 - Acute respiratory failure with hypercapnia (2) COPD exacerbation: Status: Acute Category: Medical Code(s): J44.1 - Chronic obstructive pulmonary disease with (acute) exacerbation Plan Brittney Sierra is a 79-year-old female with a medical history significant for COPD, HFrEF, unruptured AAA, medication nonadherence presents with progressive shortness of breath, altered mentation. She states been going on for several days, denies chest pain, abdominal pain. Patient is a poor historian and has a history of medical nonadherence, will follow-up records from [facility]. Workup in the ED significant for VBG showing acute hypercapnic respiratory failure pCO2 65 pH 7.28, BNP 20,500, influenza A positive. CTA chest reveals mass anterior to the ascending aorta, unruptured and known AAA but no acute intrapulmonary findings. Patient was initiated on DuoNeb treatments and BiPAP with gradual improvement in symptoms. Case discussed with ED provider and decision was made to admit patient for acute metabolic encephalopathy, hypercapnic respiratory failure, COPD exacerbation. #Acute on chronic hypoxic, hypercapnic respiratory failure #Acute metabolic encephalopathy #COPD exacerbation #Influenza A ? Progressive shortness of breath, VBG showing acute hypercapnic respiratory failure. Respiratory panel positive for influenza A. ? Encephalopathy likely secondary to CO2 narcosis. BiPAP initiated, repeat VBG reassuring with improvement in encephalopathy. ? Continue BiPAP 16/8 50% for now, as patient continued to have increased work of breathing and diminished air movement after weaning to nasal cannula. ? Levalbuterol and ipratropium every 4 hours, Pulmicort twice daily. ? Continue azithromycin day 1/5. ? Continue Tamiflu day 1/5. ? Pulmonology consulted, pending further recommendations. #HFrEF #PVCs ? Initial BNP 20,500. However, euvolemic. No pulmonary, peripheral edema. Did give IV Bumex 1 mg one-time home dose. ? Elevated BNP likely represents chronic heart failure. ? EKG does show frequent PVCs. Blood pressure stable. ? Follow-up ECHO. ? Continue home Bumex 1 mg, metoprolol succinate 100 mg. #Thalamic lesions ? CT head report reads possible right thalamic punctate hemorrhage. ? However, my review of CT head shows that this is bilateral and seems calcific. There are similar lesions in bilateral lateral ventricles, likely also calcifications. Both myself and ED provider extensively discussed this finding, and given no focal neurological deficits and patient's encephalopathy significantly improving with BiPAP we can monitor this closely here. ? Follow-up brain MRI in the morning. #AAA, unruptured ? CTA chest reveals 5.8 x 5.2 infrarenal AAA. Patient has previously refused repair for this. ? Recommend outpatient BP goal less than 120/80. ? Cardiology consulted to obtain further perspective. #Suspected lymphadenopathy ? There is a 4 x 1.7 cm well-delineated mass anterior to the ascending aorta. Unclear if this has been worked up previously. ? Follow-up records from [facility]. Patient is a poor historian. #Hyperlipidemia ? Resume home rosuvastatin 20 mg. Full code DVT prophylaxis: SCDs
--- NOTE | 2024-08-29 17:38 | PC.WOUNDNOTE ---
ERYTHEMA NOTED TO BOTTOM, PRESSURE DRESSING APPLIED
--- NOTE | 2024-08-29 17:39 | PC.WOUNDNOTE ---
ERYTHEMA NOTED UNDER LEFT BREAST
--- NOTE | 2024-08-29 17:42 | PC.NURSE ---
Pt has been oriented to self only this shift. Pt has had bouts of agitation, but has been easily redirected. Bipap reapplied this afternoon d/t pt's WOB. Head CT delayed until tomorrow per MD Stout. Pt has been incontinent this shift, purewick in place. Clear, dark yellow urine noted in canister. Erythema noted to pt's buttocks, pressure dressing placed and pt has been a q2h turn. Heels floated with heel protectors on. Cyanosis noted to bilateral toes this shift, MD aware. Family has been updated multiple times over the phone this shift, all questions answered. Pt is in droplet precautions d/t being flu A positive.
[2024-08-29] MEDS: METOPROLOL SUCCINATE XL 50MG TABLET 50 MG PO (17:56)
[2024-08-29 19:19] LABS: VBG HCO3 30.4 mmol/L (23-30); VBG Oxygen Saturation 94.1 % (50-70); VBG PH 7.36 mmol/L (7.31-7.41)
[2024-08-29 19:38] LABS: Lactate Venous 2.4 mmol/L (0.4-2.0); VBG PCO2 54.6 mmol/L (35-51)
[2024-08-30] VITALS (18 sets, daily range): BP systolic 119–169; BP diastolic 77–113; PULSE 73–118; RESP 17–26; TEMP 36.4–37; O2SAT 92–100; BMI 26.1
--- NOTE | 2024-08-30 01:24 | PC.NURSE ---
pt placed on 6L NC at this time per pt request. Pt has been turned Q2 hours this shift. VSS. O2 sat remains in the 90's. Pt has only had 100ml Urine output this shift. Steff House APRN notified.
--- NOTE | 2024-08-30 01:43 | PC.NURSE ---
Bladder scan shows 22 ml urine. Steff House APRN notified. Order being placed for 250ml bolus.
[2024-08-30] MEDS: 0.9 % SODIUM CHLORIDE 250 ML IV (02:18)
[2024-08-30] MEDS: LEVALBUTEROL 1.25MG/3ML NEB 1.25 MG IH ×3 (02:33→10:11)
[2024-08-30] MEDS: IPRATROPIUM BROMIDE 0.5 MG/2.5ML SOLUTION IH ×3 (02:33→10:11)
--- NOTE | 2024-08-30 03:14 | PC.NURSE ---
Pt placed back on BIPAP at approcx. 024
--- NOTE | 2024-08-30 04:53 | PC.NURSE ---
pt had a large unmeasured void after receiving fluid bolus. bladder scan shows 77ml. Steff House APRN notified.
--- NOTE | 2024-08-30 05:28 | PC.NURSE ---
pt is back on 6L NC at this time and tolerating well. O2 sat 92%
[2024-08-30] MEDS: BUDESONIDE 0.5MG/2ML NEB 0.5 MG IH (07:01)
[2024-08-30 08:03] LABS: Lactate Venous 1.2 mmol/L (0.4-2.0); VBG Base Excess 1.6 mmol/L (-2.4-2.3); VBG HCO3 26.1 mmol/L (23-30); VBG Oxygen Saturation 90.2 % (50-70); VBG PCO2 41.6 mmol/L (35-51); VBG PH 7.42 mmol/L (7.31-7.41); VBG PO2 54.2 mmol/L (28-40); VBG Total CO2 27.4 mmol/L (23-27)
[2024-08-30 08:08] LABS: Basophils % 0.1 % (0.1-2.0); Hemoglobin 13.8 g/dL (12.2-16.2); Lymphocytes # 0.5 K/mm3 (0.7-4.5); Lymphocytes % 4.7 % (10-50); Mean Corpuscular HGB Conc 32.1 g/dL (31.8-35.4); Mean Corpuscular Hemoglobin 29.8 pg (27.0-31.2); Mean Corpuscular Volume 92.9 fl (81-99); Mean Platelet Volume 9.5 fl (7.4-10.4); Monocytes # 1.5 K/mm3 (0.1-1.0); Monocytes % 15.2 % (1.7-9.3); Neutrophils # 7.7 K/mm3 (1.8-7.8); Neutrophils % 79.7 % (37.0-80.0); Platelet Count 131 K/mm3 (142-424); Red Blood Count 4.63 M/mm3 (4.20-5.40); Red Cell Distribution Width 13.4 % (11.5-17.5); White Blood Count 9.6 K/mm3 (4.8-10.8)
[2024-08-30 08:18] LABS: Albumin Level 3.9 g/dl (3.5-5.0); Chloride 100 mmol/L (98-107); Potassium 3.7 mmoL/L (3.5-5.1); Sodium 139 mmol/L (136-145)
--- NOTE | 2024-08-30 08:18 | PC.NURSE ---
PADMINI FROM PT AT BEDSIDE
[2024-08-30 08:20] LABS: Blood Urea Nitrogen 38 mg/dl (7-17); Creatinine Clearance Estimated 35 mL/min (50-200); Estimated Glomerular Filt Rate 36 ml/min (>60); GFR (African American) 44 ML/MIN (>60)
[2024-08-30 08:21] LABS: Alanine Aminotransferase 20 U/L (12-78); Albumin/Globulin Ratio 1.5 (1.1-1.8); Alkaline Phosphatase 79 U/L (38-126); Anion Gap 8.7 mEq/L (5-15); Aspartate Amino Transferase 37 U/L (14-36); Bilirubin,Total 0.6 mg/dl (0.2-1.3); Carbon Dioxide 34 mmol/L (22.0-30.0); Globulin 2.6 g/dL (1.3-3.2); Glucose 109 mg/dl (74-100); Magnesium 2.6 mg/dl (1.6-2.3); Total Protein,Serum 6.5 g/dl (6.3-8.2)
[2024-08-30] MEDS: METHYLPREDNISOLONE SOD SUCC 40MG VIAL 40 MG IV (08:42)
[2024-08-30] MEDS: GABAPENTIN 300MG CAPSULE 300 MG PO (08:42)
[2024-08-30] MEDS: AZITHROMYCIN 500 MG in 0.9 % SODIUM CHLORIDE 250 ML 250 MG IV (08:42)
[2024-08-30] MEDS: BUMETANIDE 1 MG TABLET PO (08:42)
[2024-08-30] MEDS: METOPROLOL SUCCINATE XL 100MG TABLET 100 MG PO (08:42)
[2024-08-30] MEDS: OSELTAMIVIR PHOSPHATE 6MG/ML ORAL SUSP 60ML 30 MG PO ×2 (08:43→20:49)
--- NOTE | 2024-08-30 08:50 | SW/DCPLANNER ---
Addendum entered by Raegan Oliver 09/02/24 09:11: [facility] and let them know that patient was discharged on 09/01/24. Elaina with [facility] asked if i could fax the resumption of care to them. Sent the resumption to them. Suzette Vera Addendum entered by Lydia Steven 08/30/24 15:46: Patient information/order has been faxed to [facility]. Per MD patient will discharge home today. Addendum entered by Lydia Steven 08/30/24 12:31: I have updated patient's daughter that per PT patient is able to return home w/ home health services. Original Note: I spoke w/ patient's daughter (Ángela Ibarra [phone]) regarding patient's insurance and SSN. Ángela stated that she is waiting for patient's other daughter to call back regarding SSN. Ángela is unsure of her insurance at this time. Ángela also stated that patient does well at home: able to ambulate independently, does not use a walker, does not currently have HHS and is able to complete ADLs. Ángela stated that she will be bedside to speak w/ patient and myself today regarding discharge planning. I will continue to follow up. Discharge date is unknown at this time.
--- NOTE | 2024-08-30 09:00 | PC.NURSE ---
DR SONG AT BEDSIDE
--- NOTE | 2024-08-30 09:25 | HMH.PTEV ---
Physical Therapy Evaluation Rehab PT IP Evaluation Start: 08/30/24 08:16 Freq: ONCE Status: Active Protocol: Document 08/30/24 09:21 MELISSABinaKEVON (Rec: 08/30/24 09:25 PHOTAZ [id number]) Subjective/History History History 79-year-old female with a medical history significant for COPD, HFrEF, unruptured AAA, medication nonadherence presents with progressive shortness of breath, altered mentation. She states been going on for several days, denies chest pain, abdominal pain. Patient is a poor historian and has a history of medical nonadherence. She presents pleasantly confused at this time. She reports she lives with family, but is unsure which family members, has 3-4 BRIGETTE the home, and is generally independent with all ambulation and ADLs. found to be Flu+ after admission. Subjective Subjective Currently pt is A&O x 2, no c/ o at this time, and agrees to mobility assessment. Rehab PT IP Eval Objective Appearance Patient Behavior Appropriate Patient Orientation Person,Time Difficulty following instructions none Speech Pattern Clear Ambulation Patient Able to Ambulate Yes Ambulation Observation IP General Gait Pattern Observation No Deviations/Normal Ambulation Distance (feet) 8 Ambulation Assistive Device None Ambulation Ability Contact Guard/Hand Hold Balance Ability to Arise Able, uses arms to help Sitting Balance Steady, safe Standing Balance Steady, wide stance Dynamic Sitting Balance Ability Good Dynamic Standing Balance Ability Fair Transfers Bed Transfer Ability Contact Guard/Hand Hold Chair Transfer Ability Minimal x 1 (25% assist) Sit to Stand Bed Transfer Ability Minimal x 1 (25% assist) Sit to Stand Chair Transfer Ability Minimal x 1 (25% assist) ROM All Extremities PT ROM Status WFL MMT All Extremities PT MMT WFL Rehab PT IP prob,goals,plan Problems Date of Evaluation: 08/30/24 PT IP Problems Transfers,Gait Rehab Potential Rehab Potential Good Plan PT Intervention Plan Transfers,Gait,Therapeutic Exercise PT Plan Frequency Daily Duration LOS Discharge Goals Bed Transfer Ability Supervision/Stand by Sit to Stand Chair Transfer Ability Supervision/Stand by Ambulation Assistive Device Rolling Walker Ambulation Distance (feet) 30 Discharge Plan PT Discharge Plan Pt is currently appropriate to return home once medically stable for d/c. Recommend home health therapy after return home. Skilled therapy is indicated to increase general strength, improve transfers, and improve ambulation ability in order to return ot to OF . Eval Complexity Eval Charge Codes 46259 - High Complexity PHYSICIAN CERTIFICATION: I certify the specified therapy services for Brittney Sierra are required, authorized, and reviewed every 30 days.
--- NOTE | 2024-08-30 09:27 | PC.NURSE ---
OT AT BEDSIDE
--- NOTE | 2024-08-30 09:28 | HMH.PTWOUND ---
Rehab Inpt Wound Evaluation Rehab IP Wound Evaluation Start: 08/29/24 10:58 Freq: ONCE Status: Active Protocol: Document 08/30/24 09:26 DANIA (Rec: 08/30/24 09:28 [email or web address] [id number]) Rehab PT Wound Assessment Subjective Subjective 79-year-old female with a medical history significant for COPD, HFrEF, unruptured AAA, medication nonadherence presents with progressive shortness of breath, altered mentation. She states been going on for several days, denies chest pain, abdominal pain. Patient is a poor historian and has a history of medical nonadherence. Pt presents with area of redness on her sacrum and in several folds at time of adm. Plan/Recommendation Comment Currently there are no wound care needs for this pt as nsg staff is covering sacrum appropriately and performing pressure relief as indicated per protocols. No current inpatient wound care team needs. Eval Complexity Eval Charge Codes 91619 - Moderate Complexity PHYSICIAN CERTIFICATION: I certify the specified therapy services for Brittney Sierra are required, authorized, and reviewed every 30 days.
--- NOTE | 2024-08-30 09:54 | P.CONS_ITS ---
History of Present Illness History of present illness: Ms. Sierra is a 79-year-old female greater than [id number] smoking history of COPD chronic hypoxic respiratory failure using 2 L nasal oxygen supplementation presented to the ER with worsening respiratory distress and pulmonary was called for further evaluation and management. [facility] Disclaimer: The information contained in this section may have been updated after the patient was seen, as this information can be updated by other users. Medical History (Updated 08/30/24 @ 11:52 by Carleen Samano MD) Influenza A with pneumonia AAA (abdominal aortic aneurysm) HFrEF (heart failure with reduced ejection fraction) Hyperparathyroidism Purpura senilis Peripheral artery disease Renal artery stenosis Allergies Pulmonary hypertension Nonrheumatic mitral valve regurgitation Coronary artery disease Renal osteodystrophy Thoracic aorta atherosclerosis Atrial fibrillation Kidney stone Chronic kidney disease Pneumonia COPD (chronic obstructive pulmonary disease) History of stroke Dementia Osteoarthritis Hemorrhoids Aneurysm History of cataract Hyperlipidemia Hypertension History of left heart catheterization (LHC) Surgical History (Updated 08/29/24 @ 09:51 by Lilliam Upton RN) H/O ovarian cystectomy H/O tubal ligation History of cholecystectomy Family History (Updated 08/29/24 @ 08:53 by Lilliam Upton, RN) Other Family history of cancer Social History (Updated 08/29/24 @ 08:54 by Lilliam Upton, RN) Smoking Status: Current every day smoker alcohol intake: never current occupational status: retired and other Travel in the last 8 weeks: None Have you lived/traveled outside US in past 30 days?: No Contact w/someone who lives/traveled outside US past 30 days?: No Exposure to someone with infectious disease in past 14 days?: No Do you have a fever (greater than 100.4 F or 38 C)?: No Have you tested positive for COVID-19: No Exposed to someone with COVID-19 in past 14 days?: No Do you have a sore throat?: No Do you have a cough?: No Do you have any weakness?: No Do you have any diarrhea?: No Are you experiencing any unusual bleeding?: No Do you have any muscle aches/pain?: No Do you have any abdominal pain?: No Are you experiencing loss of taste or smell?: No Review of Systems Constitutional Constitutional: Reports anorexia, Reports body ache(s) and Reports fatigue Eyes Eyes: Denies eye discharge, Denies dry eyes, Denies irritation and Denies itchy eyes ENT Ears, Nose, Mouth, and Throat: Denies epistaxis, Denies facial pain, Denies lip swelling and Denies throat swelling *Cardiovascular Cardiovascular: Reports dyspnea and Reports dyspnea on exertion *Respiratory Respiratory: Reports change in phlegm color, Reports chest congestion, Reports cough, Reports dyspnea, Reports dyspnea on exertion, Reports excessive phlegm production, Denies hemoptysis, Denies pain on inspiration, Denies pain with cough and Reports wheezing *Gastrointestinal Gastrointestinal: Denies abdominal pain, Denies belching and Denies cramping *Musculoskeletal Musculoskeletal: Reports back pain, Reports myalgias and Reports other (No small joint swelling or Pain) Psychiatric Psychiatric: Denies homicidal ideation and Denies suicidal ideation Endocrine Endocrine: Reports fatigue and Denies heat intolerance Hematologic/Lymphatic Hematologic/Lymphatic: Denies easy bleeding and Denies lymphadenopathy Allergic/Immunologic Allergic/Immunologic: Denies itchy eyes, Denies lip swelling, Denies throat swelling and Reports wheezing Pulmonology Exam Inpatient Vital signs and Labs for Last 24 Hours: Temp Pulse Resp BP Pulse Ox O2 Del Method O2 Flow Rate 98.4 F 96 H 24 142/102 H 96 Nasal Cannula 4 08/30/24 04:01 08/30/24 07:00 08/30/24 06:00 08/30/24 06:00 08/30/24 07:25 08/30/24 07:25 08/30/24 07:25 FiO2 50 08/30/24 03:15 Laboratory Results - last 24 hr 08/29/24 09:36: Troponin I 0.03 08/29/24 11:00: VBG pH 7.34, VBG pCO2 51.2 H, VBG pO2 144.9 H, VBG HCO3 26.9, V BG Total CO2 28.5 H, VBG O2 Saturation 98.9 H, VBG Base Excess 1.2, VBG Lactic Acid 2.8 H 08/29/24 11:09: Lactate 2.0 08/29/24 12:15: Troponin I 0.03 08/29/24 12:29: Urine Color Yellow, Urine Appearance Clear, Urine pH 6.0, Ur Specific [place] 1.025, Urine Protein 2+ A, Urine Glucose (UA) Negative, Urine Ketones Negative, Urine Blood 1+ A, Urine Nitrate Negative, Urine Bilirubin Negative, Urine Urobilinogen 0.2, Ur Leukocyte Esterase Negative, Urine RBC 3-5, Urine WBC None, Ur Squamous Epith Cells Occasional, Urine Bacteria None 08/29/24 17:53: VBG pH 7.36, VBG pCO2 54.6 H, VBG pO2 67.0 H, VBG HCO3 30.4 H, V BG Total CO2 32.0 H, VBG O2 Saturation 94.1 H, VBG Base Excess 5.0 H, VBG Lactic Acid 2.4 H 08/30/24 07:47: VBG pH 7.42 H, VBG pCO2 41.6, VBG pO2 54.2 H, VBG HCO3 26.1, VBG Total CO2 27.4 H, VBG O2 Saturation 90.2 H, VBG Base Excess 1.6, VBG Lactic Acid 1.2 08/30/24 07:56: WBC 9.6 D, RBC 4.63, Hgb 13.8, Hct 43.0, MCV 92.9, MCH 29.8, MCHC 32.1, RDW 13.4, Plt Count 131 L, MPV 9.5, Neut % (Auto) 79.7, Lymph % (Auto) 4.7 L, [place] % (Auto) 15.2 H, Eos % (Auto) 0.0 L, Baso % (Auto) 0.1, Neut # (Auto) 7.7, Lymph # (Auto) 0.5 L, [place] # (Auto) 1.5 H, Eos # (Auto) 0.0, Baso # (Auto) 0.0, Sodium 139, Potassium 3.7, Chloride 100, Carbon Dioxide 34 H, Anion Gap 8.7, BUN 38 H D, Creatinine 1.40 H, Estimated Creat Clear 35, E stimated GFR 36 L, Est GFR ( Amer) 44 L, Glucose 109 H, Calcium 9.0, M agnesium 2.6 H, Total Bilirubin 0.6, AST 37 H, ALT 20, Alkaline Phosphatase 79, Total Protein 6.5, Albumin 3.9, Globulin 2.6, Albumin/Globulin Ratio 1.5 I & O for Labs for Last 24 Hours: Intake & Output 08/27/24 08/28/24 08/29/24 08/30/24 23:59 23:59 23:59 23:59 Intake Total 60 / 160 100 / 100 Output Total 900 / 900 50 / 50 Balance -840 / -740 50 / 50 Weight 148 lb 3 oz 147 lb 6.4 oz Microbiology Reports for the Last 24 Hours: Microbiology 08/29/24 06:33 Blood Blood Culture - Preliminary NO GROWTH AFTER 24 HOURS 08/29/24 06:25 Blood Blood Culture - Preliminary NO GROWTH AFTER 24 HOURS Constitutional: Present moderate distress Head: Present normocephalic and atraumatic ENT: Present normal exam, normal oropharynx and mucous membranes moist Neck: Present normal inspection and full ROM Respiratory: Present respiratory distress and able to speak in complete sentences; Absent wheezes or diminished air movement Cardiac: Present S1/S2, Tachycardia and radial pulses present GI: Present soft and distention; Absent tenderness or guarding Rectal (female): Present deferred (female): Present deferred Skin: Present intact; Absent cyanosis or jaundice Neuro: Present alert, awake and oriented x 3 Extremities: Present normal inspection; Absent clubbing or cyanosis Psychiatric: Present normal affect and cooperative Meds Home Medications and Allergies Home Medications ?Medication ?Instructions ?Recorded ?Confirmed ?Type bumetanide 1 mg tablet 1 mg PO DAILY 08/29/24 08/29/24 History famotidine 20 mg tablet 20 mg PO DAILY 08/29/24 08/29/24 History febuxostat 40 mg tablet 40 mg PO DAILY 08/29/24 08/29/24 History gabapentin 300 mg capsule 300 mg PO DAILY 08/29/24 08/29/24 History levocetirizine 5 mg tablet 5 mg PO BID 08/29/24 08/29/24 History metoprolol succinate 100 mg 100 mg PO DAILY 08/29/24 08/29/24 History tablet,extended release 24 hr rivaroxaban 15 mg tablet (Xarelto) 15 mg PO QPMWITHMEAL 08/29/24 08/29/24 History rosuvastatin 20 mg tablet 20 mg PO HS 08/29/24 08/29/24 History tramadol 50 mg tablet 50 mg PO TID PRN Pain, Moderate 08/29/24 08/29/24 History New Prescriptions to Start Prescriptions: Allergies Allergy/AdvReac Type Severity Reaction Status Date / Time bee venom protein (honey bee) Allergy Hives Verified 08/29/24 09:45 hydromorphone (From Dilaudid) Allergy Rash Verified 08/29/24 09:45 Results Laboratory Findings 08/30/24 07:56 08/30/24 07:56 PT/INR, D-dimer PT 12.3 seconds (10.1-12.5) 08/29/24 06:25 INR 1.11 (0.9-1.1) H 08/29/24 06:25 Abnormal lab findings: Abnormal Labs 08/29/24 08/29/24 08/29/24 06:00 06:10 06:25 Plt Count 130 L Lymph % (Auto) 8.3 L Cameron % (Auto) 19.6 H Eos % (Auto) 0.0 L Lymph # (Auto) 0.5 L Cameron # (Auto) 1.1 H INR 1.11 H VBG pH 7.28 L VBG pCO2 65.8 H VBG pO2 47.6 H VBG HCO3 VBG Total CO2 32.0 H VBG O2 Saturation 81.7 H VBG Base Excess 3.1 H VBG Lactic Acid 2.1 H Chloride 97 L Carbon Dioxide 33 H BUN 30 H Creatinine 1.20 H Estimated GFR 43 L Est GFR ( Amer) 53 L Glucose 140 H Magnesium AST NT-Pro-B Natriuret Pep 45220 H Urine Protein Urine Blood Influenza A (H3) PCR Detected A 08/29/24 08/29/24 08/29/24 11:00 12:29 17:53 Plt Count Lymph % (Auto) Cameron % (Auto) Eos % (Auto) Lymph # (Auto) [place] # (Auto) INR VBG pH VBG pCO2 51.2 H 54.6 H VBG pO2 144.9 H 67.0 H VBG HCO3 30.4 H VBG Total CO2 28.5 H 32.0 H VBG O2 Saturation 98.9 H 94.1 H VBG Base Excess 5.0 H VBG Lactic Acid 2.8 H 2.4 H Chloride Carbon Dioxide BUN Creatinine Estimated GFR Est GFR ( Amer) Glucose Magnesium AST NT-Pro-B Natriuret Pep Urine Protein 2+ A Urine Blood 1+ A Influenza A (H3) PCR 08/30/24 08/30/24 07:47 07:56 Plt Count 131 L Lymph % (Auto) 4.7 L Cameron % (Auto) 15.2 H Eos % (Auto) 0.0 L Lymph # (Auto) 0.5 L [place] # (Auto) 1.5 H INR VBG pH 7.42 H VBG pCO2 VBG pO2 54.2 H VBG HCO3 VBG Total CO2 27.4 H VBG O2 Saturation 90.2 H VBG Base Excess VBG Lactic Acid Chloride Carbon Dioxide 34 H BUN 38 H D Creatinine 1.40 H Estimated GFR 36 L Est GFR ( Amer) 44 L Glucose 109 H Magnesium 2.6 H AST 37 H NT-Pro-B Natriuret Pep Urine Protein Urine Blood Influenza A (H3) PCR Assessment and Plan *Assessment and plan (1) Acute respiratory failure with hypoxia and hypercarbia: Status: Acute Category: Medical Code(s): J96.01 - Acute respiratory failure with hypoxia; J96.02 - Acute respiratory failure with hypercapnia (2) Influenza A with pneumonia: Status: Acute Category: Medical Code(s): J09.X1 - Influenza due to identified novel influenza A virus with pneumonia Plan Ms. Sierra is a 79-year-old female greater than [id number] smoking history of COPD chronic hypoxic respiratory failure using 2 L nasal oxygen supplementation presented to the ER with worsening respiratory distress and pulmonary was called for further evaluation and management. Patient initial VBG concerning for hypercarbic respiratory failure, needing noninvasive ventilator therapy though improved eventually. Respiratory viral PCR panel positive for flu CTA mass noted in anterior mediastinum. No Pulmonary nodule/lung mass noted. no hilar lymphadenopathy noted. No evidence of pulmonary embolism. Centrilobular emphysematous changes. No dense consolidative/airspace changes. BNP elevated upon admission. Echocardiogram pending. Afebrile. Hemodynamically stable. Mild neutrophilic predominant leukocytosis. Auscultation no significant wheezing appreciated. Improving oxygen requirements. Plan: Initiate Trelegy 100 inhaler along with DuoNebs every 6 hours as needed Continue Tamiflu for influenza pneumonia. Continue ceftriaxone azithromycin, antibiotics can be weaned to cefdinir to complete a total of 5-day course upon discharge Discontinue methylprednisolone
--- NOTE | 2024-08-30 10:04 | HMH.OTEV ---
OT Inpatient Evaluation Rehab OT IP Evaluation Start: 08/30/24 08:16 Freq: ONCE Status: Active Protocol: Document 08/30/24 09:57 [facility] (Rec: 08/30/24 10:04 [id number]) Rehab OT IP Assessment Subjective History 79-year-old female with a medical history significant for COPD, HFrEF, unruptured AAA, medication nonadherence presents with progressive shortness of breath, altered mentation. She states been going on for several days, denies chest pain, abdominal pain. Patient is a poor historian and has a history of medical nonadherence. She presents pleasantly confused at this time. She reports she lives with family, but is unsure which family members, has 3-4 [place] the home, and claims to be generally independent with all ambulation and ADLs. However, information provided may be untrustworthy due to continued confusion. Found to be Flu+ after admission. Subjective Pt oriented to self, but unable to provide last name. Pt unable to recall birthday or place. Objective Patient Orientation Person Bed Mobility bed mobility-scooting,bed mobility - supine/sit Assist Level Minimal x 1 (25% assist) Transfer Training Sit/Stand Transfer Assist Level Minimal x 1 (25% assist) Lower Body Dressing Ability Maximum Assistance Rehab OT IP prob,goals,plan Problems Date of Evaluation: 08/30/24 OT IP Problems Bed Mobility,Transfers,Balance ,Self care,Safety Rehab Potential Rehab Potential Good Equipment Needs Assistive Devices Rolling / Wheeled Walker Plan OT intervention Plan Bed Mobility,Transfers,Balance ,Self care,Safety,Therapeutic Exercise OT Plan Frequency Daily Duration LOS Discharge Goals Bed Mobility Ability Standby Assistance,Assistance x1 Sit to Stand Chair Transfer Ability Contact Guard/Hand Hold, Minimal x 1 (25% assist) Chair Transfer Ability Contact Guard/Hand Hold, Minimal x 1 (25% assist) Chair Transfer Technique Sit to/from Ambulatory Lower Body Dressing Ability Moderate Assistance Upper Body Dressing Ability Contact Guard Bathing Ability Moderate Assistance Performing Toilet Hygiene Ability Moderate Assistance Overall Commode/Toilet Transfer Ability Contact Guard,Minimal Assistance Commode/Toilet Transfer Technique Sit to/from Ambulatory Oral Care Assist Standby Assistance Decrease in Endurance Yes Discharge Plan OT Discharge Plan Pt will continue to be seen for OT services while at [facility]. Pt can return home with family if they are able to provide 24/7 assist with ADLs and functional transfers. Therapist would recommend HH OT evaluation upon returning home for continued skilled therapy. If family is not able to assist, pt would benefit most from short term rehab at [facility]. Eval Complexity Eval Charge Codes 35844 - Moderate Complexity PHYSICIAN CERTIFICATION: I certify the specified therapy services for Brittney Sierra are required, authorized, and reviewed every 30 days.
--- NOTE | 2024-08-30 10:26 | ECG_ITS ---
APPROVED REPORT Exam: Resting ECG HR:96 bpm ECG Measurements Heart Rate 96 AXES QRSd 142 QRS 53 QT 402 T 199 QTc 456 Conclusion ATRIAL FIBRILLATION LEFT BUNDLE BRANCH BLOCK [120+ ms QRS DURATION, 80+ ms Q/S IN V1/V2, 85+ ms R IN I/aVL/V5/V6] ABNORMAL ECG UNCONFIRMED REPORT Electronically signed by : Jose Alejandro Andrea MD 08/31/2024 16:23:33
--- NOTE | 2024-08-30 11:56 | MR_ITS ---
FINAL REPORT TECHNIQUE: Multiplanar and multisequence imaging of the brain was obtained without contrast. CLINICAL HISTORY: Abnormal CT head, no focal neurological deficits COMPARISON: CT of the head dated 08/29/2024 FINDINGS: There is global atrophy. There is no mass effect or midline shift. Foci of periventricular and subcortical white matter are nonspecific. Within the right basal ganglia there are several foci of decreased signal intensity, which could be calcification or hemosiderin/hemorrhage. There is also a right frontal lobe focus of decreased signal best seen on image #18 of series 10. No hydrocephalus. The cerebellum and brainstem have an unremarkable appearance. The craniocervical junction is intact. There are no areas of restricted diffusion on diffusion weighted images to suggest acute infarct. Soft tissues are without acute abnormality. IMPRESSION: Abnormal signal in the right thalamus, that correlates to the recent CT abnormality. This may represent calcification or hemosiderin/hemorrhage. Recommend short interval CT without contrast for follow-up within a week. Calcification will be stable, while blood products will evolve in several days. Nonspecific T2 abnormality within the periventricular and subcortical white matter, most likely changes of chronic small vessel ischemia in this age group. Reviewed, Interpreted and Dictated by Mary Aguila MD Transcribed by Milka Jose Authenticated and . [facility]
--- NOTE | 2024-08-30 12:06 | HMH.ITSTN ---
doing mri at 1
--- NOTE | 2024-08-30 12:08 | P.DS_ITS ---
General Admission date:: 08/29/24 HPI HPI HPI: Brittney Sierra is a 79-year-old female with a medical history significant for COPD, HFrEF, unruptured AAA, medication nonadherence presents with progressive shortness of breath, altered mentation. She states been going on for several days, denies chest pain, abdominal pain. Patient is a poor historian and has a history of medical nonadherence, will follow-up records from [facility]. Workup in the ED significant for VBG showing acute hypercapnic respiratory failure pCO2 65 pH 7.28, BNP 20,500, influenza A positive. CTA chest reveals mass anterior to the ascending aorta, unruptured and known AAA but no acute intrapulmonary findings. Patient was initiated on DuoNeb treatments and BiPAP with gradual improvement in symptoms. Case discussed with ED provider and decision was made to admit patient for acute metabolic encephalopathy, hypercapnic respiratory failure, COPD exacerbation. Exam Data for Last 24 hours Vital signs and Labs for Last 24 Hours: Temp Pulse Resp BP Pulse Ox O2 Del Method O2 Flow Rate 97.9 F 92 H 18 143/96 H 96 Nasal Cannula 2 08/30/24 08:00 08/30/24 10:11 08/30/24 10:00 08/30/24 10:00 08/30/24 10:11 08/30/24 11:05 08/30/24 11:05 FiO2 50 08/30/24 03:15 Laboratory Results - last 24 hr 08/29/24 12:15: Troponin I 0.03 08/29/24 12:29: Urine Color Yellow, Urine Appearance Clear, Urine pH 6.0, Ur Specific [place] 1.025, Urine Protein 2+ A, Urine Glucose (UA) Negative, Urine Ketones Negative, Urine Blood 1+ A, Urine Nitrate Negative, Urine Bilirubin Negative, Urine Urobilinogen 0.2, Ur Leukocyte Esterase Negative, Urine RBC 3-5, Urine WBC None, Ur Squamous Epith Cells Occasional, Urine Bacteria None 08/29/24 17:53: VBG pH 7.36, VBG pCO2 54.6 H, VBG pO2 67.0 H, VBG HCO3 30.4 H, VBG Total CO2 32.0 H, VBG O2 Saturation 94.1 H, VBG Base Excess 5.0 H, VBG Lactic Acid 2.4 H 08/30/24 07:47: VBG pH 7.42 H, VBG pCO2 41.6, VBG pO2 54.2 H, VBG HCO3 26.1, VBG Total CO2 27.4 H, VBG O2 Saturation 90.2 H, VBG Base Excess 1.6, VBG Lactic Acid 1.2 08/30/24 07:56: WBC 9.6 D, RBC 4.63, Hgb 13.8, Hct 43.0, MCV 92.9, MCH 29.8, MCHC 32.1, RDW 13.4, Plt Count 131 L, MPV 9.5, Neut % (Auto) 79.7, Lymph % (Auto) 4.7 L, [place] % (Auto) 15.2 H, Eos % (Auto) 0.0 L, Baso % (Auto) 0.1, Neut # (Auto) 7.7, Lymph # (Auto) 0.5 L, [place] # (Auto) 1.5 H, Eos # (Auto) 0.0, Baso # (Auto) 0.0, Sodium 139, Potassium 3.7, Chloride 100, Carbon Dioxide 34 H, Anion Gap 8.7, BUN 38 H D, Creatinine 1.40 H, Estimated Creat Clear 35, Estimated GFR 36 L, Est GFR ( Amer) 44 L, Glucose 109 H, Calcium 9.0, Magnesium 2.6 H, Total Bilirubin 0.6, AST 37 H, ALT 20, Alkaline Phosphatase 79, Total Protein 6.5, Albumin 3.9, Globulin 2.6, Albumin/Globulin Ratio 1.5 I & O for Last 24 hours: Intake & Output 08/27/24 08/28/24 08/29/24 08/30/24 23:59 23:59 23:59 23:59 Intake Total 60 / 160 100 / 100 Output Total 900 / 900 550 / 550 Balance -840 / -740 -450 / -450 Weight 67.217 kg 66.86 kg Microbiology Reports for the Last 24 Hours: Microbiology 08/29/24 06:33 Blood Blood Culture - Preliminary NO GROWTH AFTER 24 HOURS 08/29/24 06:25 Blood Blood Culture - Preliminary NO GROWTH AFTER 24 HOURS Results Data Completed and Pending Labs on day of discharge: Labs from last 24 hours 08/30/24 08/30/24 08/29/24 07:56 07:47 17:53 WBC 9.6 D RBC 4.63 Hgb 13.8 Hct 43.0 MCV 92.9 MCH 29.8 MCHC 32.1 RDW 13.4 Plt Count 131 L MPV 9.5 Neut % (Auto) 79.7 Lymph % (Auto) 4.7 L [place] % (Auto) 15.2 H Eos % (Auto) 0.0 L Baso % (Auto) 0.1 Neut # (Auto) 7.7 Lymph # (Auto) 0.5 L [place] # (Auto) 1.5 H Eos # (Auto) 0.0 Baso # (Auto) 0.0 VBG pH 7.42 H 7.36 VBG pCO2 41.6 54.6 H VBG pO2 54.2 H 67.0 H VBG HCO3 26.1 30.4 H VBG Total CO2 27.4 H 32.0 H VBG O2 Saturation 90.2 H 94.1 H VBG Base Excess 1.6 5.0 H VBG Lactic Acid 1.2 2.4 H Sodium 139 Potassium 3.7 Chloride 100 Carbon Dioxide 34 H Anion Gap 8.7 BUN 38 H D Creatinine 1.40 H Estimated Creat Clear 35 Estimated GFR 36 L Est GFR ( Amer) 44 L Glucose 109 H Calcium 9.0 Magnesium 2.6 H Total Bilirubin 0.6 AST 37 H ALT 20 Alkaline Phosphatase 79 Troponin I Total Protein 6.5 Albumin 3.9 Globulin 2.6 Albumin/Globulin Ratio 1.5 Urine Color Urine Appearance Urine pH Ur Specific [place] Urine Protein Urine Glucose (UA) Urine Ketones Urine Blood Urine Nitrate Urine Bilirubin Urine Urobilinogen Ur Leukocyte Esterase Urine RBC Urine WBC Ur Squamous Epith Cells Urine Bacteria 08/29/24 08/29/24 12:29 12:15 WBC RBC Hgb Hct MCV MCH MCHC RDW Plt Count MPV Neut % (Auto) Lymph % (Auto) [place] % (Auto) Eos % (Auto) Baso % (Auto) Neut # (Auto) Lymph # (Auto) [place] # (Auto) Eos # (Auto) Baso # (Auto) VBG pH VBG pCO2 VBG pO2 VBG HCO3 VBG Total CO2 VBG O2 Saturation VBG Base Excess VBG Lactic Acid Sodium Potassium Chloride Carbon Dioxide Anion Gap BUN Creatinine Estimated Creat Clear Estimated GFR Est GFR ( Amer) Glucose Calcium Magnesium Total Bilirubin AST ALT Alkaline Phosphatase Troponin I 0.03 Total Protein Albumin Globulin Albumin/Globulin Ratio Urine Color Yellow Urine Appearance Clear Urine pH 6.0 Ur Specific [place] 1.025 Urine Protein 2+ A Urine Glucose (UA) Negative Urine Ketones Negative Urine Blood 1+ A Urine Nitrate Negative Urine Bilirubin Negative Urine Urobilinogen 0.2 Ur Leukocyte Esterase Negative Urine RBC 3-5 Urine WBC None Ur Squamous Epith Cells Occasional Urine Bacteria None Preliminary micro results at discharge 08/29/24 06:33 Blood Culture - Preliminary Blood NO GROWTH AFTER 24 HOURS 08/29/24 06:25 Blood Culture - Preliminary Blood NO GROWTH AFTER 24 HOURS DS: Diagnosis Discharge Diagnosis (1) Acute respiratory failure with hypoxia and hypercarbia: Status: Acute Code(s): J96.01 - Acute respiratory failure with hypoxia; J96.02 - Acute respiratory failure with hypercapnia (2) Influenza A with pneumonia: Status: Acute Code(s): J09.X1 - Influenza due to identified novel influenza A virus with pneumonia Meds Home Medications and Allergies Home Medications ?Medication ?Instructions ?Recorded ?Confirmed ?Type bumetanide 1 mg tablet 1 mg PO DAILY 08/29/24 08/29/24 History famotidine 20 mg tablet 20 mg PO DAILY 08/29/24 08/29/24 History febuxostat 40 mg tablet 40 mg PO DAILY 08/29/24 08/29/24 History gabapentin 300 mg capsule 300 mg PO DAILY 08/29/24 08/29/24 History levocetirizine 5 mg tablet 5 mg PO BID 08/29/24 08/29/24 History metoprolol succinate 100 mg 100 mg PO DAILY 08/29/24 08/29/24 History tablet,extended release 24 hr rivaroxaban 15 mg tablet (Xarelto) 15 mg PO QPMWITHMEAL 08/29/24 08/29/24 History rosuvastatin 20 mg tablet 20 mg PO HS 08/29/24 08/29/24 History tramadol 50 mg tablet 50 mg PO TID PRN Pain, Moderate 08/29/24 08/29/24 History New Prescriptions to Start Prescriptions: Allergies Allergy/AdvReac Type Severity Reaction Status Date / Time bee venom protein (honey bee) Allergy Hives Verified 08/29/24 09:45 hydromorphone (From Dilaudid) Allergy Rash Verified 08/29/24 09:45 Discharge Plan Follow up Plan Prescriptions/Medication Reconciliation: No Action metoprolol succinate 100 mg Tablet Extended Release 24 Hr 100 mg PO DAILY tramadol 50 mg Tablet 50 mg PO TID PRN (Reason: Pain, Moderate) famotidine 20 mg Tablet 20 mg PO DAILY gabapentin 300 mg Capsule 300 mg PO DAILY bumetanide 1 mg Tablet 1 mg PO DAILY rosuvastatin 20 mg Tablet 20 mg PO HS febuxostat 40 mg Tablet 40 mg PO DAILY Xarelto 15 mg Tablet 15 mg PO QPMWITHMEAL levocetirizine 5 mg tablet 5 mg PO BID Patient Comments: TAKE 1 TABLET BY MOUTH 2 TIMES DAILY FOR 90 DAYS. * INSURANCE WILL ONLY PAY FOR 1 TABLET DAILY Patient Discharge Instructions Patient Instructions: DI for Chronic Obstructive Pulmonary Disease, DI for R espiratory Failure, DI for Altered Mental Status Print Language: [place] Citizen Providers Primary Care Provider: Mariam Chairez Provider: Maverick Stout Attending Provider: Maverick Stout
--- NOTE | 2024-08-30 13:20 | PC.NURSE ---
PT TRANSPORTED TO [facility] VIA WHEELCHAIR
--- NOTE | 2024-08-30 13:31 | EXP.CARD.CON ---
History of Present Illness History of Present Illness Consult date: 08/30/24 Chief complaint: SOA and AMS History of present illness: 79-year-old white female new here with history of COPD, atrial fibrillation, HFpEF, infrarenal aortic aneurysm. Patient presented to the emergency room with several days of worsening shortness of breath and altered mental status. Workup revealed hypercapnic respiratory failure and influenza A. CTA revealed mass anterior to the ascending aorta, infrarenal aortic aneurysm 5.8 x 5.2, head CT revealed bilateral pelvic and lateral ventricle lesions-unclear calcific/chronic. MRI is pending for this. She also has a 4 x 1.7 cm mass anterior to the ascending aorta-possible lymphadenopathy. proBNP 20,000. There is no pulmonary edema noted on CT. Echo is pending. We are asked to evaluate her infrarenal aneurysm. Patient states this has been stable for years. EKG shows paroxysmal atrial fibrillation with left bundle branch block and PVCs. [facility] Disclaimer: The information contained in this section may have been updated after the patient was seen, as this information can be updated by other users. Medical History Influenza A with pneumonia AAA (abdominal aortic aneurysm) HFrEF (heart failure with reduced ejection fraction) Hyperparathyroidism Purpura senilis Peripheral artery disease Renal artery stenosis Allergies Pulmonary hypertension Nonrheumatic mitral valve regurgitation Coronary artery disease Renal osteodystrophy Thoracic aorta atherosclerosis Atrial fibrillation Kidney stone Chronic kidney disease Pneumonia COPD (chronic obstructive pulmonary disease) History of stroke Dementia Osteoarthritis Hemorrhoids Aneurysm History of cataract Hyperlipidemia Hypertension History of left heart catheterization (LHC) Surgical History H/O ovarian cystectomy H/O tubal ligation History of cholecystectomy Family History Other Family history of cancer Social History Smoking Status: Current every day smoker alcohol intake: never current occupational status: retired and other Travel in the last 8 weeks: None Have you lived/traveled outside [place] in past 30 days?: No Contact w/someone who lives/traveled outside US past 30 days?: No Exposure to someone with infectious disease in past 14 days?: No Do you have a fever (greater than 100.4 F or 38 C)?: No Have you tested positive for COVID-19: No Exposed to someone with COVID-19 in past 14 days?: No Do you have a sore throat?: No Do you have a cough?: No Do you have any weakness?: No Do you have any diarrhea?: No Are you experiencing any unusual bleeding?: No Do you have any muscle aches/pain?: No Do you have any abdominal pain?: No Are you experiencing loss of taste or smell?: No Review of Systems Constitutional Constitutional: Reports fatigue and Reports weakness Eyes Eyes: Denies loss of vision ENT Ears, Nose, Mouth, and Throat: Denies hearing loss and Denies vertigo *Cardiovascular Cardiovascular: Denies chest pain, Reports dyspnea and Denies syncope *Respiratory Respiratory: Denies cough and Reports dyspnea *Gastrointestinal Gastrointestinal: Denies change in stool character, Denies nausea and Denies vomiting *Musculoskeletal Musculoskeletal: Denies muscle weakness Integumentary/Breasts Skin/Breast: Denies changing lesions *Neurologic Neurologic: Denies loss of vision, Denies syncope, Denies vertigo and Reports weakness Endocrine Endocrine: Reports fatigue Exam Data for Last 24 hours Vital signs and Labs for Last 24 Hours: Temp Pulse Resp BP Pulse Ox O2 Del Method O2 Flow Rate 97.9 F 92 H 18 143/96 H 96 Nasal Cannula 2 08/30/24 08:00 08/30/24 10:11 08/30/24 10:00 08/30/24 10:00 08/30/24 10:11 08/30/24 11:05 08/30/24 11:05 FiO2 50 08/30/24 03:15 Laboratory Results - last 24 hr 08/29/24 12:29: Urine RBC 3-5, Urine WBC None, Ur Squamous Epith Cells Occasional, Urine Bacteria None 08/29/24 17:53: VBG pH 7.36, VBG pCO2 54.6 H, VBG pO2 67.0 H, VBG HCO3 30.4 H, VBG Total CO2 32.0 H, VBG O2 Saturation 94.1 H, VBG Base Excess 5.0 H, VBG Lactic Acid 2.4 H 08/30/24 07:47: VBG pH 7.42 H, VBG pCO2 41.6, VBG pO2 54.2 H, VBG HCO3 26.1, VBG Total CO2 27.4 H, VBG O2 Saturation 90.2 H, VBG Base Excess 1.6, VBG Lactic Acid 1.2 08/30/24 07:56: WBC 9.6 D, RBC 4.63, Hgb 13.8, Hct 43.0, MCV 92.9, MCH 29.8, MCHC 32.1, RDW 13.4, Plt Count 131 L, MPV 9.5, Neut % (Auto) 79.7, Lymph % (Auto) 4.7 L, [place] % (Auto) 15.2 H, Eos % (Auto) 0.0 L, Baso % (Auto) 0.1, Neut # (Auto) 7.7, Lymph # (Auto) 0.5 L, [place] # (Auto) 1.5 H, Eos # (Auto) 0.0, Baso # (Auto) 0.0, Sodium 139, Potassium 3.7, Chloride 100, Carbon Dioxide 34 H, Anion Gap 8.7, BUN 38 H D, Creatinine 1.40 H, Estimated Creat Clear 35, Estimated GFR 36 L, Est GFR ( Amer) 44 L, Glucose 109 H, Calcium 9.0, Magnesium 2.6 H, Total Bilirubin 0.6, AST 37 H, ALT 20, Alkaline Phosphatase 79, Total Protein 6.5, Albumin 3.9, Globulin 2.6, Albumin/Globulin Ratio 1.5 I & O for Last 24 hours: Intake & Output 08/27/24 08/28/24 08/29/24 08/30/24 23:59 23:59 23:59 23:59 Intake Total 60 / 160 100 / 100 Output Total 900 / 900 550 / 550 Balance -840 / -740 -450 / -450 Weight 148 lb 3 oz 147 lb 6.4 oz Microbiology Reports for the Last 24 Hours: Microbiology 08/29/24 06:33 Blood Blood Culture - Preliminary NO GROWTH AFTER 24 HOURS 08/29/24 06:25 Blood Blood Culture - Preliminary NO GROWTH AFTER 24 HOURS Constitutional Constitutional: no acute distress and cooperative *Routine HEENT Exam Eye: Present PERRL *Routine Respiratory Exam Respiratory: Present CTA bilaterally; Absent accessory muscle use, wheezes or crackles *Routine Cardiovascular Exam Cardiovascular: Present RRR, Normal S1 and Normal S2; Absent murmur, gallop or rubs *Routine Abdominal Exam Abdominal: Present soft; Absent tenderness *Routine Extremities Exam Extremities: Present pulses intact; Absent cyanosis or edema *Routine Skin Exam Skin: Present intact; Absent erythema or wounds *Routine Neurological Exam Neurological: Present alert and oriented X3 Routine Psychiatric Exam Psychiatric: Present cooperative Meds Home Medications and Allergies Home Medications ?Medication ?Instructions ?Recorded ?Confirmed ?Type bumetanide 1 mg tablet 1 mg PO DAILY 08/29/24 08/29/24 History famotidine 20 mg tablet 20 mg PO DAILY 08/29/24 08/29/24 History febuxostat 40 mg tablet 40 mg PO DAILY 08/29/24 08/29/24 History gabapentin 300 mg capsule 300 mg PO DAILY 08/29/24 08/29/24 History levocetirizine 5 mg tablet 5 mg PO BID 08/29/24 08/29/24 History metoprolol succinate 100 mg 100 mg PO DAILY 08/29/24 08/29/24 History tablet,extended release 24 hr rivaroxaban 15 mg tablet (Xarelto) 15 mg PO QPMWITHMEAL 08/29/24 08/29/24 History rosuvastatin 20 mg tablet 20 mg PO HS 08/29/24 08/29/24 History tramadol 50 mg tablet 50 mg PO TID PRN Pain, Moderate 08/29/24 08/29/24 History New Prescriptions to Start Prescriptions: Allergies Allergy/AdvReac Type Severity Reaction Status Date / Time bee venom protein (honey bee) Allergy Hives Verified 08/29/24 09:45 hydromorphone (From Dilaudid) Allergy Rash Verified 08/29/24 09:45 Assessment and Plan *Assessment and plan (1) Infrarenal abdominal aortic aneurysm (AAA) without rupture: Status: Acute Category: Medical Code(s): I71.43 - Infrarenal abdominal aortic aneurysm, without rupture (2) Paroxysmal atrial fibrillation: Status: Acute Category: Medical Code(s): I48.0 - Paroxysmal atrial fibrillation (3) Influenza A with pneumonia: Status: Acute Category: Medical Code(s): J09.X1 - Influenza due to identified novel influenza A virus with pneumonia (4) COPD exacerbation: Status: Acute Category: Medical Code(s): J44.1 - Chronic obstructive pulmonary disease with (acute) exacerbation (5) Acute respiratory failure with hypoxia and hypercarbia: Status: Acute Category: Medical Code(s): J96.01 - Acute respiratory failure with hypoxia; J96.02 - Acute respiratory failure with hypercapnia (6) Altered mental status: Status: Acute Category: Medical Code(s): R41.82 - Altered mental status, unspecified Plan Infrarenal Aortic Aneurysm - 5.8x5.[address] here - will obtain records from [facility] for comparison - goal BP 120/80s or less, avoid tobacco PAF - known dx, rate controlled here - continue Metoprolol - Xarelto on hold due to questionable brain bleed, MRI pending. Resume when possible. HFpEF - hx of - euvolemic here, ProBNP 20k, no edema on chest CT or exam - ECHO pending Influenza A, COPD, Hypercapnic Resp Failure - per Pulm/Hospitalist
--- NOTE | 2024-08-30 14:05 | PC.NURSE ---
PT RETURNED FROM MRI VIA WHEELCHAIR
[2024-08-30] MEDS: SODIUM CHLORIDE 3% 15ML NEB 3 ML IH (14:51)
--- NOTE | 2024-08-30 17:57 | PC.NURSE ---
CALLED REPORT TO JORDAN SANTOS
--- NOTE | 2024-08-30 18:23 | PC.NURSE ---
PT TRANSPORTED TO THE FLOOR VIA BED
[2024-08-30] MEDS: IPRATROPIUM/ALBUTEROL 3 ML NEB IH (20:46)
[2024-08-30] MEDS: ATORVASTATIN 40MG TABLET 40 MG PO (20:49)
--- NOTE | 2024-08-30 21:53 | P.PN_ITS ---
Subjective *Date: 08/30/24 *Time: 23:38 Interval history: Had intermittent desaturations to the mid 80s on 3 L nasal cannula. Will continue to monitor. Brain MRI shows possible punctate hemorrhage versus calcification. No focal neurological deficits, though having some word finding that family states is slightly worse than baseline. Spoke with neurosurgery Dr. Charles who advised 2-week follow-up and a repeat CT scan in a week. Exam Data for Last 24 hours Vital signs and Labs for Last 24 Hours: Temp Pulse Resp BP Pulse Ox O2 Del Method O2 Flow Rate 97.9 F 113 H 18 136/87 95 Room Air 4 08/30/24 16:00 08/30/24 16:00 08/30/24 16:00 08/30/24 16:00 08/30/24 16:00 08/30/24 20:47 08/30/24 17:10 FiO2 50 08/30/24 03:15 Laboratory Results - last 24 hr 08/30/24 07:47: VBG pH 7.42 H, VBG pCO2 41.6, VBG pO2 54.2 H, VBG HCO3 26.1, VBG Total CO2 27.4 H, VBG O2 Saturation 90.2 H, VBG Base Excess 1.6, VBG Lactic Acid 1.2 08/30/24 07:56: WBC 9.6 D, RBC 4.63, Hgb 13.8, Hct 43.0, MCV 92.9, MCH 29.8, MCHC 32.1, RDW 13.4, Plt Count 131 L, MPV 9.5, Neut % (Auto) 79.7, Lymph % (Auto) 4.7 L, [place] % (Auto) 15.2 H, Eos % (Auto) 0.0 L, Baso % (Auto) 0.1, Neut # (Auto) 7.7, Lymph # (Auto) 0.5 L, [place] # (Auto) 1.5 H, Eos # (Auto) 0.0, Baso # (Auto) 0.0, Sodium 139, Potassium 3.7, Chloride 100, Carbon Dioxide 34 H, Anion Gap 8.7, BUN 38 H D, Creatinine 1.40 H, Estimated Creat Clear 35, Estimated GFR 36 L, Est GFR ( Amer) 44 L, Glucose 109 H, Calcium 9.0, Magnesium 2.6 H, Total Bilirubin 0.6, AST 37 H, ALT 20, Alkaline Phosphatase 79, Total Protein 6.5, Albumin 3.9, Globulin 2.6, Albumin/Globulin Ratio 1.5 I & O for Last 24 hours: Intake & Output 08/27/24 08/28/24 08/29/24 08/30/24 23:59 23:59 23:59 23:59 Intake Total 60 / 160 220 / 220 Output Total 900 / 900 550 / 550 Balance -840 / -740 -330 / -330 Weight 67.217 kg 66.86 kg Microbiology Reports for the Last 24 Hours: Microbiology 08/29/24 06:33 Blood Blood Culture - Preliminary NO GROWTH AFTER 24 HOURS 08/29/24 06:25 Blood Blood Culture - Preliminary NO GROWTH AFTER 24 HOURS Constitutional Constitutional: no acute distress *Routine HEENT Exam Head: Present normocephalic Eye: Present EOMI and PERRL ENT: Present mucous membranes moist *Routine Neck Exam Neck: Present supple; Absent lymphadenopathy *Routine Respiratory Exam Respiratory: Present CTA bilaterally *Routine Cardiovascular Exam Cardiovascular: Present RRR *Routine Abdominal Exam Abdominal: Present soft and normoactive bowel sounds; Absent tenderness *Routine Extremities Exam Extremities: Absent cyanosis, clubbing or edema *Routine Skin Exam Skin: Present warm; Absent rash *Routine Neurological Exam Neurological: Present alert Assessment and Plan *Assessment and plan (1) Acute respiratory failure with hypoxia and hypercarbia: Status: Acute Category: Medical Code(s): J96.01 - Acute respiratory failure with hypoxia; J96.02 - Acute respiratory failure with hypercapnia (2) COPD exacerbation: Status: Acute Category: Medical Code(s): J44.1 - Chronic obstructive pulmonary disease with (acute) exacerbation Plan Brittney Sierra is a 79-year-old female with a medical history significant for COPD, HFrEF, unruptured AAA, medication nonadherence presents with progressive shortness of breath, altered mentation. She states been going on for several days, denies chest pain, abdominal pain. Patient is a poor historian and has a history of medical nonadherence, will follow-up records from [facility]. Workup in the ED significant for VBG showing acute hypercapnic respiratory failure pCO2 65 pH 7.28, BNP 20,500, influenza A positive. CTA chest reveals mass anterior to the ascending aorta, unruptured and known AAA but no acute intrapulmonary findings. Patient was initiated on DuoNeb treatments and BiPAP with gradual improvement in symptoms. Case discussed with ED provider and decision was made to admit patient for acute metabolic encephalopathy, hypercapnic respiratory failure, COPD exacerbation. #Acute on chronic hypoxic, hypercapnic respiratory failure #Acute metabolic encephalopathy #COPD exacerbation #Influenza A ? Presented with progressive shortness of breath, VBG showing acute hypercapnic respiratory failure. Respiratory panel positive for influenza A. ? Encephalopathy likely secondary to CO2 narcosis. BiPAP initiated, repeat VBG reassuring with improvement in encephalopathy. Weaned to 3 L nasal cannula. ? Pulmonology consulted, recommended starting Trelegy and discontinuing levalbuterol, ipratropium. ? Patient had intermittent desaturations with mild to moderate movement to mid 80s this afternoon. Will continue to monitor. ? Continue azithromycin day 2/5. ? Continue Tamiflu day 2/5. ? Pulmonology consulted, pending further recommendations. #HFrEF #PVCs ? Initial BNP 20,500. However, euvolemic. No pulmonary, peripheral edema. Did give IV Bumex 1 mg one-time home dose. ? Elevated BNP likely represents chronic heart failure. ? EKG does show frequent PVCs. Blood pressure stable. ? ECHO reveals LVEF 25%, was 35% at [facility]. Cardiology following, pending further recommendations. ? Continue home Bumex 1 mg, metoprolol succinate 100 mg. ? Started Farxiga 10 mg, spironolactone 25 mg. Consider Entresto tomorrow if BP stable though patient does have CKD stage III. #Paroxysmal A-fib ? Continue metoprolol succinate 100 mg. Hold Xarelto due to possible brain bleed as below. ? If HR continues to be in the 110s, consider going up on metoprolol versus switching to Coreg. #Thalamic hemorrhage versus calcification ? CT head report reads possible right thalamic punctate hemorrhage. ? However, my review of CT head shows that this is bilateral and seems calcific. There are similar lesions in bilateral lateral ventricles, likely also calcifications. Both myself and ED provider extensively discussed this finding, and given no focal neurological deficits and patient's encephalopathy significantly improving with BiPAP we can monitor this closely here. ? Brain MRI corroborated CT finding of possible right punctate hemorrhage versus calcification. ? Patient seems to have mild word finding difficulty, family states some of this is baseline but also state this is slightly worse. Unclear if this is from CO2 encephalopathy versus CVA. ? Reached out to [facility] neurosurgery Dr. Charles who advised 2-week follow-up in his clinic and a repeat CT scan in a week. Also recommended SBP less than 140. Started spironolactone as above. #AAA, unruptured ? CTA chest reveals 5.8 x 5.2 infrarenal AAA. Patient has previously refused repair for this. ? Recommend outpatient BP goal less than 130/80. ? Cardiology consulted to obtain further perspective. #Suspected lymphadenopathy versus mediastinal mass ? There is a 4 x 1.7 cm well-delineated mass anterior to the ascending aorta. Unclear if this has been worked up previously. ? Follow-up records from [facility]. Patient is a poor historian. ? Plan to refer to oncology on discharge. #Hyperlipidemia ? Resume home rosuvastatin 20 mg. Full code DVT prophylaxis: SCDs
--- NOTE | 2024-08-30 21:53 | PC.NURSE ---
Ángela Ibarra, one of the patient's daughters, called at this time to check in on the patient.
--- NOTE | 2024-08-30 22:06 | CA_ITS ---
APPROVED REPORT EXAM: Comprehensive 2D, Doppler, and color-flow Echocardiogram Furnace Roaster: Maddie Etienne RDCS Ht: 147 ft 12 in Wt: 148lbs BSA: 19.15 BP: 149/88 mmHg Indications: RESP FAILURE,COPD,HTN,CHF,AF,HLP 2D Dimensions LA Volume 184.00 mL M-Mode Dimensions RVDd 1.51 cm (0.9-2.6) LVDd 6.03 cm (3.5-5.7) LVDs 5.09 cm (3.5-5.7) IVSd 1.32 cm (0.6-1.1) PWd 1.41 cm (0.6-1.1) EF (Teich) 32.30% FS 15.60% EDV (Teich) 182.10 mL TAPSE 1.22 (<1.7) ESV (Teich) 123.20 mL LV Diastology E Decel Time 157 (160-240 msec) E/A Ratio 1.1 Aortic Valve AoV Peak Randy. 92.0 (50-130 cm/s) AO Peak GR. 3.40 mmHg AO Mean GR. 1.70 (<5 mmHg) AO VTI 12.3 (18-25 cm) NASEEM (VTI) 2.16 (2.5-4.5 cm2) Mitral Valve MV E Max Randy. 99.0 (40-130 cm/s) MV A Velocity 89.0 (40-130 cm/s) E/A Ratio 1.11 MV PHT 46.0 ms Tricuspid Valve TR P. Velocity 291.00 cm/s RAP Estimate 10.00 mmHg RVSP 44.00 mmHg Left Ventricle The left ventricle is normal size. Left ventricular systolic function is severely decreased. There is increased LV wall thickness. There is severe global hypokinesis present. The septum is asynchronous. Grade 2 diastolic dysfunction is present. LVEF is 25%. Right Ventricle The right ventricle is not very well-visualized, but grossly appears normal in size and function. Atria The left atrium is moderately dilated. Right atrium is moderately dilated. There is no Doppler evidence of interatrial shunt. Aortic Valve The aortic valve is mildly thickened. Trace aortic regurgitation. There is no aortic valvular stenosis. Mitral Valve The mitral valve leaflets are mildly thickened. No evidence of mitral valve stenosis. Mild mitral regurgitation. Tricuspid Valve Tricuspid valve is grossly normal in structure and function. Mild tricuspid regurgitation. RVSP is 35-40 mmHg. Pulmonic Valve The pulmonary valve is normal in structure. Trace pulmonic regurgitation. Great Vessels The aortic root is normal in size. IVC is normal in size and collapses >50% with inspiration. Pericardium There is no pericardial effusion. Other Information Study Quality: Fair Conclusion Severely reduced LV systolic function (LVEF 25%). Asynchronous septum. Grade 2 diastolic dysfunction. Biatrial dilation. Mild MR, mild TR. RVSP 35-40 mmHg. Electronically signed by : Nicole Singh MD 08/30/2024 12:40:29
[2024-08-30] MEDS: METOPROLOL TARTRATE 50MG TABLET 25 MG PO (23:15)
[2024-08-31] VITALS (16 sets, daily range): BP systolic 113–156; BP diastolic 65–109; PULSE 87–140; RESP 17–26; TEMP 36.4–36.8; O2SAT 88–99; BMI 25.2
[2024-08-31] MEDS: IPRATROPIUM/ALBUTEROL 3 ML NEB IH ×2 (01:56→13:07)
--- NOTE | 2024-08-31 04:34 | PC.NURSE ---
Patient is alert to self; she can hold a conversation well, occasionally presents difficulty with comprehension, and at sporadic times becomes disoriented. She was observed to be awake for the majority of the night; at this time, she is lying in bed with eyes closed and respirations even/unlabored. She has remained on 2 L to 3 L of oxygen via nasal cannula this shift. Patient has been using the bedside commode for elimination needs. She requires at least x1 assistance during transfer from bed to commode/ambulation. Patient has complained of shortness of breath a couple times this shift (easily overexerted with activity, audible wheezing does occur); as needed Duonebs were administered per SEP with subjective/objective satisfaction. Scheduled medications administered as appropriately per SEP. A one time dose of Lopressor was administered per SEP as well. Lung sounds diminished upon auscultation; heart irregular and bowel sounds active. Patient reports having an intermittent, nonproductive cough; a sputum sample has not been able to be collected thus far. Redness noted on her bottom (foam apple dressing in place), left elbow, and underneath left breast. Heart rate has been elevated this shift (afib/BBB on telemetry); other vital signs stable. At this time, the patient is resting in bed without further complaints. Bed alarm on. Call light within reach. Droplet precautions in place for Influenza A (H3).
--- NOTE | 2024-08-31 05:48 | ECG_ITS ---
APPROVED REPORT Exam: Resting ECG HR:122 bpm ECG Measurements Heart Rate 122 AXES QRSd 138 QRS 104 QT 333 T -61 QTc 406 Conclusion ATRIAL FIBRILLATION WITH RAPID VENTRICULAR RESPONSE RIGHT AXIS DEVIATION [QRS AXIS > 100] INTRAVENTRICULAR CONDUCTION DELAY [130+ ms QRS DURATION] ABNORMAL ECG UNCONFIRMED REPORT Electronically signed by : Jose Alejandro Andrea MD 08/31/2024 16:22:26
--- NOTE | 2024-08-31 06:01 | PC.NURSE ---
Entry starting at 05:30: I checked on the patient this morning. Her heart rate had spiked and was maintaining 120s and 130s. Patient's nasal cannula was found to be removed and at the bedside; I reapplied the patient's cannula and oxygen flow was on 2.5 L. Oxygen flow increased to 3 L. Patient's skin was found to be hot to the touch and diaphoretic. Temperatures were taken (oral + axillary), each reading was 97.5. She was encouraged to slow down her breathing (exhibited fast and shallow respirations). Audible wheezing was heard. Patient appeared to be so short of breath that she was not able to coherently verbalize to staff what was wrong. Datascope hooked up to the patient. Respiratory was paged to request a STAT EKG. 05:48: EKG was performed; unofficial report showed afib with RVRs. Harsh ROGERS was paged to inform her about this abrupt occurrence and the results of the EKG. She stated that she will come up to assess the patient at the bedside. I stayed at the bedside to comfort the patient because she started to become tearful and increasingly anxious. Blood pressures were reported to Harsh ROGERS (documented accordingly). Heart rate maintained elevated. Oxygen saturations dropped to 87% to 88%. Respiratory therapist increased patient's oxygen flow to 5 L via nasal cannula. 06:03: Harsh ROGERS assessed the patient at the bedside; new orders were given and requested patient to be put onto a BIPAP. Chest x-ray was ordered/performed, pending official read. Solu-Medrol, Bumex, and intravenous magnesium was administered per SEP. Respiratory therapist applied BIPAP. Harsh ROGERS stated that she will not address her heart rate/rhythm at this time, pending outcome of BIPAP application and medication administrations. 06:45: At this time, the patient is resting upright in bed with eyes closed. Call light within reach.
[2024-08-31] MEDS: MAGNESIUM SULFATE IN WATER 2 GM/50 ML PIGGYBACK IV (06:12)
[2024-08-31 06:18] LABS: ABG Base Excess 4.8 mmol/L (-2.4-2.3); ABG HCO3 29.2 mmhg (22.0-26.0); ABG Oxygen Saturation 91 % (90-100); ABG PH 7.42 mmol/L (7.35-7.45); ABG PO2 61.4 mmhg (80-100); ABG TCO2 30.6 mmhg (23-27)
[2024-08-31 06:26] LABS: Basophils % 0.2 % (0.1-2.0); Hematocrit 46.5 % (37.0-47.0); Hemoglobin 14.7 g/dL (12.2-16.2); Lymphocytes % 7.8 % (10-50); Mean Corpuscular HGB Conc 31.6 g/dL (31.8-35.4); Mean Corpuscular Hemoglobin 29.9 pg (27.0-31.2); Mean Corpuscular Volume 94.5 fl (81-99); Mean Platelet Volume 9.8 fl (7.4-10.4); Monocytes # 1.7 K/mm3 (0.1-1.0); Monocytes % 13.6 % (1.7-9.3); Neutrophils # 9.6 K/mm3 (1.8-7.8); Platelet Count 155 K/mm3 (142-424); Red Blood Count 4.92 M/mm3 (4.20-5.40); Red Cell Distribution Width 13.6 % (11.5-17.5); White Blood Count 12.2 K/mm3 (4.8-10.8)
[2024-08-31 06:26] LABS: Allen's Test Acceptable; Oxygen 5L %
[2024-08-31 06:27] LABS: Source Right Radial
[2024-08-31] MEDS: BUMETANIDE 1MG/4ML VIAL 1 MG IV (06:28)
[2024-08-31 06:29] LABS: Albumin Level 4.2 g/dl (3.5-5.0); Chloride 104 mmol/L (98-107); Sodium 142 mmol/L (136-145)
[2024-08-31] MEDS: METHYLPREDNISOLONE SOD SUCC 125MG VIAL 80 MG IV (06:29)
[2024-08-31 06:32] LABS: Alanine Aminotransferase 29 U/L (12-78); Albumin/Globulin Ratio 1.5 (1.1-1.8); Alkaline Phosphatase 79 U/L (38-126); Aspartate Amino Transferase 73 U/L (14-36); Bilirubin,Total 0.8 mg/dl (0.2-1.3); Blood Urea Nitrogen 46 mg/dl (7-17); Carbon Dioxide 33 mmol/L (22.0-30.0); Creatinine Clearance Estimated 36 mL/min (50-200); Estimated Glomerular Filt Rate 40 ml/min (>60); GFR (African American) 48 ML/MIN (>60); Globulin 2.8 g/dL (1.3-3.2)
[2024-08-31 06:33] LABS: Calcium 9.1 mg/dl (8.4-10.2); Glucose 96 mg/dl (74-100); Magnesium 2.7 mg/dl (1.6-2.3)
--- NOTE | 2024-08-31 06:36 | EXP.EVENT.NO ---
Notified by bedside RN of Lucio with RVR with heart rate in the 130s. Patient also diaphoretic at that time. Blood pressure stable. Patient noted to be in mild respiratory distress. BiPAP applied with significant improvement in symptoms. Patient medicated with Bumex, Solu-Medrol and magnesium with improvement in symptoms. Chest x-ray obtained, pending read
[2024-08-31 07:03] LABS: Thyroid Stimulating Hormone 1.85 uIU/mL (0.465-4.68)
[2024-08-31] MEDS: METOPROLOL SUCCINATE XL 100MG TABLET 100 MG PO (08:02)
--- NOTE | 2024-08-31 08:20 | PC.NURSE ---
respiratory @ bedside. bipap still in use. pt is SOA with any exertion at all. elevated heart rate. i gave po metoprolol early.
[2024-08-31 08:21] LABS: Chol/HDL Ratio 3.1 (1-3.5); Cholesterol 147 mg/dl (140-200); HDL Cholesterol 47 mg/dl (40-60); Triglycerides 166 mg/dl (30-150); VLDL Cholesterol 33 mg/dL (0-40)
[2024-08-31 08:32] LABS: Direct LDL Cholesterol 59.71 mg/dL (100-129)
[2024-08-31 08:46] LABS: Free T4 (Free Thyroxine) 0.95 ng/dl (0.78-2.19)
[2024-08-31 09:01] LABS: Hemoglobin A1C 5.4 % (4.0-6.0)
[2024-08-31] MEDS: OSELTAMIVIR PHOSPHATE 6MG/ML ORAL SUSP 60ML 30 MG PO ×2 (09:07→21:27)
[2024-08-31] MEDS: SPIRONOLACTONE 25MG TABLET 25 MG PO (09:08)
[2024-08-31] MEDS: BUMETANIDE 1 MG TABLET PO ×2 (09:08→16:38)
[2024-08-31] MEDS: GABAPENTIN 300MG CAPSULE 300 MG PO (09:08)
[2024-08-31] MEDS: SACUBITRIL/VALSARTAN 24-26MG TABLET 1 EACH PO ×2 (09:09→21:26)
--- NOTE | 2024-08-31 10:39 | EXP.PULM.PN ---
Subjective *Date: 08/31/24 *Time: 12:50 Interval history: Worsening respiratory events needing noninvasive ventilator therapy this morning. Weaned to nasal cannula. Pulmonology Exam Inpatient Vital signs and Labs for Last 24 Hours: Temp Pulse Resp BP Pulse Ox O2 Del Method O2 Flow Rate 97.5 F L 110 H 24 152/91 H 98 BiPAP 3 08/31/24 06:00 08/31/24 08:00 08/31/24 08:00 08/31/24 07:40 08/31/24 08:00 08/31/24 09:00 08/31/24 07:40 FiO2 40 08/31/24 06:47 Laboratory Results - last 24 hr 08/31/24 05:58: WBC 12.2 H D, RBC 4.92, Hgb 14.7, Hct 46.5, MCV 94.5, MCH 29.9, MCHC 31.6 L, RDW 13.6, Plt Count 155, MPV 9.8, Neut % (Auto) 78.0, Lymph % (Auto) 7.8 L, [place] % (Auto) 13.6 H, Eos % (Auto) 0.0 L, Baso % (Auto) 0.2, Neut # (Auto) 9.6 H, Lymph # (Auto) 1.0, [place] # (Auto) 1.7 H, Eos # (Auto) 0.0, Baso # (Auto) 0.0, Sodium 142, Potassium 4.0, Chloride 104, Carbon Dioxide 33 H, Anion Gap 9.0, BUN 46 H, Creatinine 1.30 H, Estimated Creat Clear 36, Estimated GFR 40 L, Est GFR ( Amer) 48 L, Glucose 96, Hemoglobin A1c 5.4, Calcium 9.1, Magnesium 2.7 H, Total Bilirubin 0.8, AST 73 H D, ALT 29 D, Alkaline Phosphatase 79, Total Protein 7.0, Albumin 4.2, Globulin 2.8, Albumin/Globulin Ratio 1.5, Triglycerides 166 H, Cholesterol 147, LDL Cholesterol Direct 59.71 L, VLDL Cholesterol 33, HDL Cholesterol 47, Cholesterol/HDL Ratio 3.1, TSH 1.85, Free T4 0.95 08/31/24 06:03: Specimen Source Right radial, O2 % 5l, ABG pH 7.42, ABG pCO2 46.0 H, ABG pO2 61.4 L, ABG HCO3 29.2 H, ABG Total CO2 30.6 H, ABG O2 Saturation 91, ABG Base Excess 4.8 H, Aldo Test Acceptable Temp Pulse Resp BP Pulse Ox O2 Del Method O2 Flow Rate 98.4 F 96 H 24 142/102 H 96 Nasal Cannula 4 08/30/24 04:01 08/30/24 07:00 08/30/24 06:00 08/30/24 06:00 08/30/24 07:25 08/30/24 07:25 08/30/24 07:25 FiO2 50 08/30/24 03:15 Laboratory Results - last 24 hr 08/29/24 09:36: Troponin I 0.03 08/29/24 11:00: VBG pH 7.34, VBG pCO2 51.2 H, VBG pO2 144.9 H, VBG HCO3 26.9, VBG Total CO2 28.5 H, VBG O2 Saturation 98.9 H, VBG Base Excess 1.2, VBG Lactic Acid 2.8 H 08/29/24 11:09: Lactate 2.0 08/29/24 12:15: Troponin I 0.03 08/29/24 12:29: Urine Color Yellow, Urine Appearance Clear, Urine pH 6.0, Ur Specific [place] 1.025, Urine Protein 2+ A, Urine Glucose (UA) Negative, Urine Ketones Negative, Urine Blood 1+ A, Urine Nitrate Negative, Urine Bilirubin Negative, Urine Urobilinogen 0.2, Ur Leukocyte Esterase Negative, Urine RBC 3-5, Urine WBC None, Ur Squamous Epith Cells Occasional, Urine Bacteria None 08/29/24 17:53: VBG pH 7.36, VBG pCO2 54.6 H, VBG pO2 67.0 H, VBG HCO3 30.4 H, VBG Total CO2 32.0 H, VBG O2 Saturation 94.1 H, VBG Base Excess 5.0 H, VBG Lactic Acid 2.4 H 08/30/24 07:47: VBG pH 7.42 H, VBG pCO2 41.6, VBG pO2 54.2 H, VBG HCO3 26.1, VBG Total CO2 27.4 H, VBG O2 Saturation 90.2 H, VBG Base Excess 1.6, VBG Lactic Acid 1.2 08/30/24 07:56: WBC 9.6 D, RBC 4.63, Hgb 13.8, Hct 43.0, MCV 92.9, MCH 29.8, MCHC 32.1, RDW 13.4, Plt Count 131 L, MPV 9.5, Neut % (Auto) 79.7, Lymph % (Auto) 4.7 L, [place] % (Auto) 15.2 H, Eos % (Auto) 0.0 L, Baso % (Auto) 0.1, Neut # (Auto) 7.7, Lymph # (Auto) 0.5 L, [place] # (Auto) 1.5 H, Eos # (Auto) 0.0, Baso # (Auto) 0.0, Sodium 139, Potassium 3.7, Chloride 100, Carbon Dioxide 34 H, Anion Gap 8.7, BUN 38 H D, Creatinine 1.40 H, Estimated Creat Clear 35, Estimated GFR 36 L, Est GFR ( Amer) 44 L, Glucose 109 H, Calcium 9.0, Magnesium 2.6 H, Total Bilirubin 0.6, AST 37 H, ALT 20, Alkaline Phosphatase 79, Total Protein 6.5, Albumin 3.9, Globulin 2.6, Albumin/Globulin Ratio 1.5 I & O for Labs for Last 24 Hours: Intake & Output 08/28/24 08/29/24 08/30/24 08/31/24 23:59 23:59 23:59 23:59 Intake Total 60 / 160 220 / 620 740 / 740 Output Total 900 / 900 550 / 550 400 / 400 Balance -840 / -740 -330 / 70 340 / 340 Weight 148 lb 3 oz 147 lb 6.4 oz 142 lb 3.2 oz Intake & Output 08/27/24 08/28/24 08/29/24 08/30/24 23:59 23:59 23:59 23:59 Intake Total 60 / 160 100 / 100 Output Total 900 / 900 50 / 50 Balance -840 / -740 50 / 50 Weight 148 lb 3 oz 147 lb 6.4 oz Microbiology Reports for the Last 24 Hours: Microbiology 08/29/24 06:33 Blood Blood Culture - Preliminary NO GROWTH AFTER 48 HOURS 08/29/24 06:25 Blood Blood Culture - Preliminary NO GROWTH AFTER 48 HOURS Microbiology 08/29/24 06:33 Blood Blood Culture - Preliminary NO GROWTH AFTER 24 HOURS 08/29/24 06:25 Blood Blood Culture - Preliminary NO GROWTH AFTER 24 HOURS Constitutional: Present moderate distress Head: Present normocephalic and atraumatic ENT: Present normal exam, normal oropharynx and mucous membranes moist Neck: Present normal inspection and full ROM Respiratory: Present respiratory distress and able to speak in complete sentences; Absent wheezes or diminished air movement Cardiac: Present S1/S2, Tachycardia and radial pulses present GI: Present soft and distention; Absent tenderness or guarding Rectal (female): Present deferred (female): Present deferred Skin: Present intact; Absent cyanosis or jaundice Neuro: Present alert, awake and oriented x 3 Extremities: Present normal inspection; Absent clubbing or cyanosis Psychiatric: Present normal affect and cooperative Assessment and Plan *Assessment and plan (1) Acute respiratory failure with hypoxia and hypercarbia: Status: Acute Category: Medical Code(s): J96.01 - Acute respiratory failure with hypoxia; J96.02 - Acute respiratory failure with hypercapnia (2) Influenza A with pneumonia: Status: Acute Category: Medical Code(s): J09.X1 - Influenza due to identified novel influenza A virus with pneumonia Plan Ms. Sierra is a 79-year-old female greater than [id number] smoking history of COPD chronic hypoxic respiratory failure using 2 L nasal oxygen supplementation presented to the ER with worsening respiratory distress and pulmonary was called for further evaluation and management. Patient initial VBG concerning for hypercarbic respiratory failure, needing noninvasive ventilator therapy though improved eventually. Respiratory viral PCR panel positive for flu CTA mass noted in anterior mediastinum. No Pulmonary nodule/lung mass noted. no hilar lymphadenopathy noted. No evidence of pulmonary embolism. Centrilobular emphysematous changes. No dense consolidative/airspace changes. BNP elevated upon admission. Echocardiogram pending. Afebrile. Hemodynamically stable. Mild neutrophilic predominant leukocytosis. On initial examination, auscultation no significant wheezing appreciated. Improving oxygen requirements. Interval update: Patient had acute decline in her clinical status with A-fib RVR tachycardia and respiratory distress needing BiPAP therapy. Chest x-ray from this morning stable with no acute changes from her admission chest x-ray. No significant wheezing noted on auscultation this morning. Plan: Continue nasal cannula oxygen supplementation to maintain O2 saturation goal of 90% and above Continue Trelegy 100 inhaler along with DuoNebs every 6 hours as needed Continue Tamiflu for influenza pneumonia. Continue ceftriaxone azithromycin, antibiotics can be weaned to cefdinir to complete a total of 5-day course upon discharge
[2024-08-31] MEDS: AZITHROMYCIN 500 MG in 0.9 % SODIUM CHLORIDE 250 ML 250 MG IV (10:44)
--- NOTE | 2024-08-31 11:39 | EXP.CARD.PN ---
Subjective Subjective Date: 08/31/24 Time: 09:30 Interval history: Out of ICU overnight. She is sleeping with CPAP. Arousable. Denies CP, SOA. No LE Edema. Remains in rate controlled A-fib. Records received from outside facility indicating severe vascular disease and HFrEF since at least 2022. Exam Data for Last 24 hours Vital signs and Labs for Last 24 Hours: Temp Pulse Resp BP Pulse Ox O2 Del Method O2 Flow Rate 97.5 F L 104 H 18 130/85 92 L BiPAP 3 08/31/24 06:00 08/31/24 11:08/31/24 11:08/31/24 11:25 08/31/24 11:25 08/31/24 11:08/31/24 07:40 FiO2 40 08/31/24 11:31 Laboratory Results - last 24 hr 08/31/24 05:58: WBC 12.2 H D, RBC 4.92, Hgb 14.7, Hct 46.5, MCV 94.5, MCH 29.9, MCHC 31.6 L, RDW 13.6, Plt Count 155, MPV 9.8, Neut % (Auto) 78.0, Lymph % (Auto) 7.8 L, [place] % (Auto) 13.6 H, Eos % (Auto) 0.0 L, Baso % (Auto) 0.2, Neut # (Auto) 9.6 H, Lymph # (Auto) 1.0, [place] # (Auto) 1.7 H, Eos # (Auto) 0.0, Baso # (Auto) 0.0, Sodium 142, Potassium 4.0, Chloride 104, Carbon Dioxide 33 H, Anion Gap 9.0, BUN 46 H, Creatinine 1.30 H, Estimated Creat Clear 36, Estimated GFR 40 L, Est GFR ( Amer) 48 L, Glucose 96, Hemoglobin A1c 5.4, Calcium 9.1, Magnesium 2.7 H, Total Bilirubin 0.8, AST 73 H D, ALT 29 D, Alkaline Phosphatase 79, Total Protein 7.0, Albumin 4.2, Globulin 2.8, Albumin/Globulin Ratio 1.5, Triglycerides 166 H, Cholesterol 147, LDL Cholesterol Direct 59.71 L, VLDL Cholesterol 33, HDL Cholesterol 47, Cholesterol/HDL Ratio 3.1, TSH 1.85, Free T4 0.95 08/31/24 06:03: Specimen Source Right radial, O2 % 5l, ABG pH 7.42, ABG pCO2 46.0 H, ABG pO2 61.4 L, ABG HCO3 29.2 H, ABG Total CO2 30.6 H, ABG O2 Saturation 91, ABG Base Excess 4.8 H, Aldo Test Acceptable Temp Pulse Resp BP Pulse Ox O2 Del Method O2 Flow Rate 97.9 F 92 H 18 143/96 H 96 Nasal Cannula 2 08/30/24 08:00 08/30/24 10:11 08/30/24 10:00 08/30/24 10:00 08/30/24 10:11 08/30/24 11:05 08/30/24 11:05 FiO2 50 08/30/24 03:15 Laboratory Results - last 24 hr 08/29/24 12:29: Urine RBC 3-5, Urine WBC None, Ur Squamous Epith Cells Occasional, Urine Bacteria None 08/29/24 17:53: VBG pH 7.36, VBG pCO2 54.6 H, VBG pO2 67.0 H, VBG HCO3 30.4 H, VBG Total CO2 32.0 H, VBG O2 Saturation 94.1 H, VBG Base Excess 5.0 H, VBG Lactic Acid 2.4 H 08/30/24 07:47: VBG pH 7.42 H, VBG pCO2 41.6, VBG pO2 54.2 H, VBG HCO3 26.1, VBG Total CO2 27.4 H, VBG O2 Saturation 90.2 H, VBG Base Excess 1.6, VBG Lactic Acid 1.2 08/30/24 07:56: WBC 9.6 D, RBC 4.63, Hgb 13.8, Hct 43.0, MCV 92.9, MCH 29.8, MCHC 32.1, RDW 13.4, Plt Count 131 L, MPV 9.5, Neut % (Auto) 79.7, Lymph % (Auto) 4.7 L, [place] % (Auto) 15.2 H, Eos % (Auto) 0.0 L, Baso % (Auto) 0.1, Neut # (Auto) 7.7, Lymph # (Auto) 0.5 L, [place] # (Auto) 1.5 H, Eos # (Auto) 0.0, Baso # (Auto) 0.0, Sodium 139, Potassium 3.7, Chloride 100, Carbon Dioxide 34 H, Anion Gap 8.7, BUN 38 H D, Creatinine 1.40 H, Estimated Creat Clear 35, Estimated GFR 36 L, Est GFR ( Amer) 44 L, Glucose 109 H, Calcium 9.0, Magnesium 2.6 H, Total Bilirubin 0.6, AST 37 H, ALT 20, Alkaline Phosphatase 79, Total Protein 6.5, Albumin 3.9, Globulin 2.6, Albumin/Globulin Ratio 1.5 I & O for Last 24 hours: Intake & Output 08/28/24 08/29/24 08/30/24 08/31/24 23:59 23:59 23:59 23:59 Intake Total 60 / 160 220 / 620 740 / 740 Output Total 900 / 900 550 / 550 400 / 400 Balance -840 / -740 -330 / 70 340 / 340 Weight 148 lb 3 oz 147 lb 6.4 oz 142 lb 3.2 oz Intake & Output 08/27/24 08/28/24 08/29/24 08/30/24 23:59 23:59 23:59 23:59 Intake Total 60 / 160 100 / 100 Output Total 900 / 900 550 / 550 Balance -840 / -740 -450 / -450 Weight 148 lb 3 oz 147 lb 6.4 oz Microbiology Reports for the Last 24 Hours: Microbiology 08/29/24 06:33 Blood Blood Culture - Preliminary NO GROWTH AFTER 48 HOURS 08/29/24 06:25 Blood Blood Culture - Preliminary NO GROWTH AFTER 48 HOURS Microbiology 08/29/24 06:33 Blood Blood Culture - Preliminary NO GROWTH AFTER 24 HOURS 08/29/24 06:25 Blood Blood Culture - Preliminary NO GROWTH AFTER 24 HOURS Constitutional Constitutional: no acute distress and cooperative *Routine HEENT Exam Eye: Present PERRL *Routine Respiratory Exam Respiratory: Present CTA bilaterally; Absent accessory muscle use, wheezes or crackles *Routine Cardiovascular Exam Cardiovascular: Present RRR, Normal S1 and Normal S2; Absent murmur, gallop or rubs *Routine Abdominal Exam Abdominal: Present soft; Absent tenderness *Routine Extremities Exam Extremities: Present pulses intact; Absent cyanosis or edema *Routine Skin Exam Skin: Present intact; Absent erythema or wounds *Routine Neurological Exam Neurological: Present alert and oriented X3 Routine Psychiatric Exam Psychiatric: Present cooperative Progress Note: A&P Assessment and plan (1) Acute respiratory failure with hypoxia and hypercarbia: Status: Acute (2) Influenza A with pneumonia: Status: Acute (3) Paroxysmal atrial fibrillation: Status: Acute (4) Infrarenal abdominal aortic aneurysm (AAA) without rupture: Status: Acute (5) COPD exacerbation: Status: Acute (6) Altered mental status: Status: Acute (7) Mesenteric ischemia: Status: Acute Assessment and Plan Assessment and Plan for All Diagnoses:: Infrarenal Aortic Aneurysm - 5.8x5.[address] here. Review from [facility] shows abdominal aneurysm of at least 5cm - she has seen vascular surgery and declind intervention. - recommend she f/u with vascular surgery outpatient as measurement here is closer to 6cm - goal BP 120/80s or less, avoid tobacco PAF - known dx, rate controlled here - continue Metoprolol - Xarelto on hold due to questionable thalmic brain bleed on CT Head and MRI. Acute on Chronic HFrEF - EF as low as 20% since at least 2022. - presented euvolemic here, ProBNP 20k, no edema on chest CT or exam - ECHO here shows EF 25% with Grade 2 diastolic dysfunction and biatrial dilation - unclear if she's ever had a cath but she denies CP and with questionable brain bleed DAPT is not an option - cont BB, Statin. Add Entresto, Aldactone. Stop Farxiga with acute illness - risk of DKA. Can resume that as outpatient - not a candidate for LifeVest as this is chronic HFrEF with EF <35% for over 1 year with history of noncompliance and no interest in interventional procedures ASCVD - outside records reveal [employer] of Left Renal Artery, Severe Celiac and SMA stenosis, occluded KEYA since 2022 - pt unclear whether she's ever had LHC. She needs ischemic eval especially with low EF but as noted above she is not a candidate for that at this time Influenza A, COPD, Hypercapnic Resp Failure - per Pulm/Hospitalist Pt CV stable. Please advise if further CV concerns this admission. She needs close outpatient f/u with Cardiology and Vascular surgery if she is willing. CV DC Meds: DC Xarelto secondary to possible brain bleed Continue metoprolol 100 mg daily Continue rosuvastatin 20 mg nightly Start Entresto 24-26 mg 1 p.o. twice daily Start Aldactone 25 mg 1 p.o. daily Hold [facility] due to acute illness - risk of DKA
[2024-08-31] MEDS: FLUTICASONE/UMECLIDIN/VILANTER 100/62.5/25MCG INHALER 1 PUFF IH (13:25)
--- NOTE | 2024-08-31 17:37 | EXP.ACUTE.PN ---
Subjective *Date: 08/31/24 *Time: 17:37 Interval history: Patient resting comfortably today. Weaned from CPAP overnight to 3 L nasal cannula this morning. Responded well to diuresis. Denies any chest pain, nausea, vomiting. Pulmonology and cardiology assisting with care. Medical Exam Vital signs and Labs for Last 24 Hours: Vital Signs Temp Pulse Pulse Resp BP Pulse Ox O2 Del Method 08/31/24 17:00 Nasal Cannula 08/31/24 16:00 Nasal Cannula 08/31/24 16:00 97.9 F 98 H 18 113/70 97 Nasal Cannula 08/31/24 15:00 Nasal Cannula 08/31/24 13:07 106 H 08/31/24 13:07 103 H 08/31/24 13:00 CPAP 08/31/24 12:00 100 H 08/31/24 11:31 08/31/24 11:25 104 H 18 130/85 92 L BiPAP 08/31/24 11:00 CPAP 08/31/24 09:00 CPAP 08/31/24 08:00 110 H 08/31/24 08:00 24 98 BiPAP 08/31/24 07:40 108 H 20 152/91 H 94 L Nasal Cannula 08/31/24 07:00 BiPAP 08/31/24 06:47 08/31/24 06:40 89 20 137/103 H 99 BiPAP 08/31/24 06:30 96 H 20 141/109 H 98 BiPAP 08/31/24 06:05 140 H 24 156/108 H 95 BiPAP 08/31/24 06:00 97.5 F L 136 H 24 155/109 H 88 L Nasal Cannula 08/31/24 05:55 97.5 F L 124 H 22 151/100 H 88 L Nasal Cannula 08/31/24 05:00 Nasal Cannula 08/31/24 04:00 100 H 08/31/24 04:00 97.5 F L 95 H 20 139/89 96 Nasal Cannula 08/31/24 03:00 Nasal Cannula 08/31/24 01:00 Nasal Cannula 08/31/24 00:00 120 H 08/31/24 00:00 Nasal Cannula 08/31/24 00:00 97.8 F 118 H 18 133/68 94 L Nasal Cannula 08/30/24 23:00 Nasal Cannula 08/30/24 21:00 Nasal Cannula 08/30/24 20:47 Room Air 08/30/24 20:00 118 H 18 100 Nasal Cannula 08/30/24 20:00 100 H 08/30/24 20:00 97.6 F 118 H 18 169/108 H 100 Nasal Cannula 08/30/24 18:43 Nasal Cannula O2 Flow Rate FiO2 08/31/24 17:00 08/31/24 16:00 08/31/24 16:00 3 08/31/24 15:00 08/31/24 13:07 08/31/24 13:07 08/31/24 13:00 08/31/24 12:00 08/31/24 11:31 40 08/31/24 11:25 08/31/24 11:00 08/31/24 09:00 08/31/24 08:00 08/31/24 08:00 08/31/24 07:40 3 08/31/24 07:00 08/31/24 06:47 40 08/31/24 06:40 08/31/24 06:30 08/31/24 06:05 08/31/24 06:00 5 08/31/24 05:55 3 08/31/24 05:00 2.5 08/31/24 04:00 08/31/24 04:00 3 08/31/24 03:00 2 08/31/24 01:00 3 08/31/24 00:00 08/31/24 00:00 2 08/31/24 00:00 2 08/30/24 23:00 2 08/30/24 21:00 2 08/30/24 20:47 08/30/24 20:00 2 08/30/24 20:00 08/30/24 20:00 08/30/24 18:43 Intake and Output 08/31/24 08/31/24 08/31/24 07:59 15:59 23:59 Intake Total 500 / 1380 880 / 1380 Output Total 200 / 400 200 / 400 Balance 300 / 980 680 / 980 Intake: Intake, Oral Amount 250 / 1130 880 / 1130 Infusion Intake 250 / 250 Azithromycin 500 mg In 0.9 % 250 / 250 Sodium Chloride 250 ml @ 250 mls/hr IV Q24H [facility] Rx#:[id number] Output: Output, Urine Amount 200 / 400 200 / 400 Other: Number of Bowel Movements 1 Weight 64.501 kg Patient Weight 08/31/24 23:59 Weight 64.501 kg Laboratory Results - last 24 hr 08/31/24 05:58: WBC 12.2 H D, RBC 4.92, Hgb 14.7, Hct 46.5, MCV 94.5, MCH 29.9, MCHC 31.6 L, RDW 13.6, Plt Count 155, MPV 9.8, Neut % (Auto) 78.0, Lymph % (Auto) 7.8 L, [place] % (Auto) 13.6 H, Eos % (Auto) 0.0 L, Baso % (Auto) 0.2, Neut # (Auto) 9.6 H, Lymph # (Auto) 1.0, [place] # (Auto) 1.7 H, Eos # (Auto) 0.0, Baso # (Auto) 0.0, Sodium 142, Potassium 4.0, Chloride 104, Carbon Dioxide 33 H, Anion Gap 9.0, BUN 46 H, Creatinine 1.30 H, Estimated Creat Clear 36, Estimated GFR 40 L, Est GFR ( Amer) 48 L, Glucose 96, Hemoglobin A1c 5.4, Calcium 9.1, Magnesium 2.7 H, Total Bilirubin 0.8, AST 73 H D, ALT 29 D, Alkaline Phosphatase 79, Total Protein 7.0, Albumin 4.2, Globulin 2.8, Albumin/Globulin Ratio 1.5, Triglycerides 166 H, Cholesterol 147, LDL Cholesterol Direct 59.71 L, VLDL Cholesterol 33, HDL Cholesterol 47, Cholesterol/HDL Ratio 3.1, TSH 1.85, Free T4 0.95 08/31/24 06:03: Specimen Source Right radial, O2 % 5l, ABG pH 7.42, ABG pCO2 46.0 H, ABG pO2 61.4 L, ABG HCO3 29.2 H, ABG Total CO2 30.6 H, ABG O2 Saturation 91, ABG Base Excess 4.8 H, Aldo Test Acceptable I & O for Labs for Last 24 Hours: Intake & Output 08/28/24 08/29/24 08/30/24 08/31/24 23:59 23:59 23:59 23:59 Intake Total 60 / 160 220 / 620 1380 / 1380 Output Total 900 / 900 550 / 550 400 / 400 Balance -840 / -740 -330 / 70 980 / 980 Weight 67.217 kg 66.86 kg 64.501 kg Microbiology Reports for the Last 24 Hours: Microbiology 08/29/24 06:33 Blood Blood Culture - Preliminary NO GROWTH AFTER 48 HOURS 08/29/24 06:25 Blood Blood Culture - Preliminary NO GROWTH AFTER 48 HOURS Constitutional: Present mild distress, average body habitus, chronically ill appearing and cooperative Head: Present atraumatic and normocephalic ENT: Present normal exam Respiratory: Present prolonged expiratory phase, rhonchi, wheezes and normal respiratory effort; Absent respiratory distress or crackles Cardiac: Present Reg Rate and Rhythm GI: Present soft and normal bowel sounds; Absent distention or tenderness Extremities: Present normal inspection and full ROM Skin: Present intact; Absent erythema Neuro: Present Grossly Intact, alert, awake and moves all extremities Assessment and Plan *Assessment and plan (1) Acute respiratory failure with hypoxia and hypercarbia: Status: Acute Category: Medical Code(s): J96.01 - Acute respiratory failure with hypoxia; J96.02 - Acute respiratory failure with hypercapnia (2) Influenza A with pneumonia: Status: Acute Category: Medical Code(s): J09.X1 - Influenza due to identified novel influenza A virus with pneumonia (3) COPD exacerbation: Status: Acute Category: Medical Code(s): J44.1 - Chronic obstructive pulmonary disease with (acute) exacerbation (4) Paroxysmal atrial fibrillation: Status: Acute Category: Medical Code(s): I48.0 - Paroxysmal atrial fibrillation (5) Infrarenal abdominal aortic aneurysm (AAA) without rupture: Status: Acute Category: Medical Code(s): I71.43 - Infrarenal abdominal aortic aneurysm, without rupture (6) Altered mental status: Status: Acute Category: Medical Code(s): R41.82 - Altered mental status, unspecified Plan Brittney Sierra is a 79-year-old female with a medical history significant for COPD, HFrEF, unruptured AAA, medication nonadherence presents with progressive shortness of breath, altered mentation. She states been going on for several days, denies chest pain, abdominal pain. Patient is a poor historian and has a history of medical nonadherence, will follow-up records from [facility]. Workup in the ED significant for VBG showing acute hypercapnic respiratory failure pCO2 65 pH 7.28, BNP 20,500, influenza A positive. CTA chest reveals mass anterior to the ascending aorta, unruptured and known AAA but no acute intrapulmonary findings. Patient was initiated on DuoNeb treatments and BiPAP with gradual improvement in symptoms. Case discussed with ED provider and decision was made to admit patient for acute metabolic encephalopathy, hypercapnic respiratory failure, COPD exacerbation. He is requiring patient management. Showing slow improvement. Problems addressed as follows: #Acute on chronic hypoxic, hypercapnic respiratory failure #Acute metabolic encephalopathy #COPD exacerbation #Influenza A ? Presented with progressive shortness of breath, VBG showing acute hypercapnic respiratory failure. Respiratory panel positive for influenza A. -Encephalopathy waxing and waning. Likely due to flu pneumonia and hypoxia. ? Discussed case with pulmonology, recommend continuing nasal cannula as needed for goal sats greater 90%. Continue Trelegy 100 inhaler daily. Continue DuoNebs every 6 hours as needed. -Continue Tamiflu twice daily for flu pneumonia. -Continue ceftriaxone and azithromycin. Can wean to cefdinir at time of discharge to complete 5 days of therapy #HFrEF #PVCs # Infrarenal AAA, unruptured ? Initial BNP 20,500. However, euvolemic. No pulmonary, peripheral edema. - Cardiology evaluated. Has 5.8 x 5.[address] Goal BP less than 120/80. Continue metoprolol for rate control -Holding Xarelto at this time - ECHO reveals LVEF 25%, was 35% at [facility]. Cardiology following, pending further recommendations. ? Continue home Bumex 1 mg, metoprolol succinate 100 mg. ? Started Farxiga 10 mg, spironolactone 25 mg. Consider Entresto tomorrow if BP stable though patient does have CKD stage III. #Paroxysmal A-fib ? Continue metoprolol succinate 100 mg. Hold Xarelto due to possible brain bleed as below. ? If HR continues to be in the 110s, consider going up on metoprolol versus switching to Coreg. #Thalamic hemorrhage versus calcification ? CT head report reads possible right thalamic punctate hemorrhage. ? However, my review of CT head shows that this is bilateral and seems calcific. There are similar lesions in bilateral lateral ventricles, likely also calcifications. Both myself and ED provider extensively discussed this finding, and given no focal neurological deficits and patient's encephalopathy significantly improving with BiPAP we can monitor this closely here. ? Brain MRI corroborated CT finding of possible right punctate hemorrhage versus calcification. ? Patient seems to have mild word finding difficulty, family states some of this is baseline but also state this is slightly worse. Unclear if this is from CO2 encephalopathy versus CVA. ? Reached out to [facility] neurosurgery Dr. Charles who advised 2-week follow-up in his clinic and a repeat CT scan in a week. Also recommended SBP less than 140. Started spironolactone as above. #Suspected lymphadenopathy versus mediastinal mass ? There is a 4 x 1.7 cm well-delineated mass anterior to the ascending aorta. Unclear if this has been worked up previously. ? Follow-up records from [facility]. Patient is a poor historian. ? Plan to refer to oncology on discharge. #Hyperlipidemia ?Continue home rosuvastatin 20 mg. Full code DVT prophylaxis: SCDs
--- NOTE | 2024-08-31 20:12 | XR_ITS ---
FINAL REPORT CLINICAL HISTORY: hypoxia COMPARISON: 08/29/2024 FINDINGS: A portable view of the chest was obtained. The heart is enlarged in size. Bilateral interstitial opacities are unchanged. There is no new infiltrate. There is no pleural effusion or pneumothorax. IMPRESSION: Stable bilateral interstitial opacities. Reviewed, Interpreted and Dictated by Mary Aguila MD Transcribed by Chante Roto Authenticated and [facility]
[2024-08-31] MEDS: ATORVASTATIN 40MG TABLET 40 MG PO (21:26)
[2024-09-01] VITALS (7 sets, daily range): BP systolic 106–127; BP diastolic 56–87; PULSE 55–111; RESP 14–18; TEMP 36.4–36.6; O2SAT 95–97; BMI 27.1
--- NOTE | 2024-09-01 04:31 | PC.NURSE ---
Pt is alert x3 and only to self at times. Pt has had confusion and has yelled help multiple times and states her call light does not work , Staff have oriented pt to call light. Pt is currently tolerating 4LNC @ 93% at this time. However pt did where her C-PAP for approx 3 hours this shift, and requested it be removed (RT contacted at that time). Pt has not rested well this shift and seems to be awake most times when staff pass her room or during hourly rounding. Pt lungs remain diminished throughout and this nurse has noticed minimal coughing. Staff has be unable to collect pts ordered sputum sample. Pt alarm is set and active
[2024-09-01] MEDS: FLUTICASONE/UMECLIDIN/VILANTER 100/62.5/25MCG INHALER 1 PUFF IH (06:17)
[2024-09-01 07:08] LABS: Basophils % 0.1 % (0.1-2.0); Hematocrit 47.1 % (37.0-47.0); Hemoglobin 15.3 g/dL (12.2-16.2); Lymphocytes % 10.3 % (10-50); Mean Corpuscular HGB Conc 32.5 g/dL (31.8-35.4); Mean Corpuscular Hemoglobin 30.3 pg (27.0-31.2); Mean Corpuscular Volume 93.3 fl (81-99); Mean Platelet Volume 10.2 fl (7.4-10.4); Monocytes # 1.4 K/mm3 (0.1-1.0); Monocytes % 14.5 % (1.7-9.3); Neutrophils # 7.2 K/mm3 (1.8-7.8); Neutrophils % 74.9 % (37.0-80.0); Platelet Count 134 K/mm3 (142-424); Red Blood Count 5.05 M/mm3 (4.20-5.40); Red Cell Distribution Width 13.4 % (11.5-17.5); White Blood Count 9.6 K/mm3 (4.8-10.8)
[2024-09-01 07:22] LABS: Albumin Level 3.6 g/dl (3.5-5.0); Chloride 98 mmol/L (98-107); Potassium 3.5 mmoL/L (3.5-5.1); Sodium 141 mmol/L (136-145)
[2024-09-01 07:24] LABS: Blood Urea Nitrogen 51 mg/dl (7-17); Creatinine Clearance Estimated 34 mL/min (50-200); Estimated Glomerular Filt Rate 34 ml/min (>60); GFR (African American) 41 ML/MIN (>60)
[2024-09-01 07:25] LABS: Alanine Aminotransferase 26 U/L (12-78); Albumin/Globulin Ratio 1.4 (1.1-1.8); Alkaline Phosphatase 69 U/L (38-126); Anion Gap 8.5 mEq/L (5-15); Aspartate Amino Transferase 37 U/L (14-36); Bilirubin,Total 0.7 mg/dl (0.2-1.3); Calcium 8.7 mg/dl (8.4-10.2); Carbon Dioxide 38 mmol/L (22.0-30.0); Globulin 2.6 g/dL (1.3-3.2); Glucose 91 mg/dl (74-100); Magnesium 2.8 mg/dl (1.6-2.3); Total Protein,Serum 6.2 g/dl (6.3-8.2)
[2024-09-01 07:41] LABS: NT Pro Brain Natriuretic Pep. 19300 pg/mL (0-450)
[2024-09-01] MEDS: AZITHROMYCIN 250MG TABLET 500 MG PO (09:42)
[2024-09-01] MEDS: GABAPENTIN 300MG CAPSULE 300 MG PO (09:42)
[2024-09-01] MEDS: SPIRONOLACTONE 25MG TABLET 25 MG PO (09:42)
[2024-09-01] MEDS: SACUBITRIL/VALSARTAN 24-26MG TABLET 1 EACH PO (09:42)
[2024-09-01] MEDS: METOPROLOL SUCCINATE XL 100MG TABLET 100 MG PO (09:42)
[2024-09-01] MEDS: BUMETANIDE 1 MG TABLET PO (09:42)
[2024-09-01] MEDS: OSELTAMIVIR PHOSPHATE 6MG/ML ORAL SUSP 60ML 30 MG PO (09:43)
--- NOTE | 2024-09-01 15:53 | P.DS_ITS ---
General Admission date:: 08/29/24 Discharge date: 09/01/24 HPI HPI HPI: Brittney Sierra is a 79-year-old female with a medical history significant for COPD, HFrEF, unruptured AAA, medication nonadherence presents with progressive shortness of breath, altered mentation. She states been going on for several days, denies chest pain, abdominal pain. Patient is a poor historian and has a history of medical nonadherence, will follow-up records from [facility]. Workup in the ED significant for VBG showing acute hypercapnic respiratory failure pCO2 65 pH 7.28, BNP 20,500, influenza A positive. CTA chest reveals mass anterior to the ascending aorta, unruptured and known AAA but no acute intrapulmonary findings. Patient was initiated on DuoNeb treatments and BiPAP with gradual improvement in symptoms. Case discussed with ED provider and decision was made to admit patient for acute metabolic encephalopathy, hypercapnic respiratory failure, COPD exacerbation. Hospital Course Hospital Course Hospital Course: Brittney Sierra is a 79-year-old female with a medical history significant for COPD, HFrEF, unruptured AAA, medication nonadherence presents with progressive shortness of breath, altered mentation. She states been going on for several days, denies chest pain, abdominal pain. Patient is a poor historian and has a history of medical nonadherence, will follow-up records from [facility]. Workup in the ED significant for VBG showing acute hypercapnic respiratory failure pCO2 65 pH 7.28, BNP 20,500, influenza A positive. CTA chest reveals mass anterior to the ascending aorta, unruptured and known AAA but no acute intrapulmonary findings. Patient was initiated on DuoNeb treatments and BiPAP with gradual improvement in symptoms. Case discussed with ED provider and decision was made to admit patient for acute metabolic encephalopathy, hypercapnic respiratory failure, COPD exacerbation. Showed gradual improvement. Able to wean to room air. Stable discharge home. Imaging of head inconclusive for stroke versus calcification. Seems to be back to baseline by discharge. Stable discharge home with outpatient therapy for further management. Recommend following with pulm and cards after discharge. Problems addressed as follows: #Acute on chronic hypoxic, hypercapnic respiratory failure #Acute metabolic encephalopathy #COPD exacerbation #Influenza A ? Presented with progressive shortness of breath, VBG showing acute hypercapnic respiratory failure. Respiratory panel positive for influenza A. Encephalopathy waxing and waning. Likely due to flu pneumonia and hypoxia. Pulmonology consulted, recommended nasal cannula for O2 sats greater 90%. Initiated Trelegy 100 inhaler and DuoNebs every 6 hours. Treated with Tamiflu and broad-spectrum antibiotics. Weaned to cefdinir to complete 5 days of therapy and complete 5 days of Tamiflu. Able to wean oxygen to room air by day of discharge. Stable to discharge home at this time. #HFrEF #PVCs # Infrarenal AAA, unruptured ? Initial BNP 20,500. However, euvolemic. No pulmonary, peripheral edema. Cardiology evaluated. Has 5.8 x 5.[address] Goal BP less than 120/80. Continue metoprolol for rate control. Hold Xarelto at time of admission. Resume at discharge. ECHO reveals LVEF 25%, was 35% at [facility]. Continue home Bumex 1 mg, metoprolol succinate 100 mg. Started Farxiga 10 mg, spironolactone 25 mg. Initiated Entresto prior to discharge with good tolerance. Kidney function remained stable. Follow with cardiology as an outpatient #Paroxysmal A-fib ? Continue metoprolol succinate 100 mg. Resume Xarelto after head imaging. #Thalamic hemorrhage versus calcification ? CT head report reads possible right thalamic punctate hemorrhage. However, my review of CT head shows that this is bilateral and seems calcific. There are similar lesions in bilateral lateral ventricles, likely also calcifications. Both admitting physician and ED provider extensively discussed this finding, and given no focal neurological deficits and patient's encephalopathy significantly improving with BiPAP we can monitor this closely here. Brain MRI corroborated CT finding of possible right punctate hemorrhage versus calcification. Patient seems to have mild word finding difficulty, family states some of this is baseline but also state this is slightly worse. Unclear if this is from CO2 encephalopathy versus CVA. Reached out to [facility] neurosurgery Dr. Charles who advised 2-week follow-up in his clinic and a repeat CT scan in a week. Also recommended SBP less than 140. Started spironolactone as above. #Suspected lymphadenopathy versus mediastinal mass ? There is a 4 x 1.7 cm well-delineated mass anterior to the ascending aorta. Unclear if this has been worked up previously. Follow-up records from [facility]. Patient is a poor historian. Defer oncology referral to pulmonology. Needs follow-up as an outpatient. #Hyperlipidemia ?Continue home rosuvastatin 20 mg. Total time spent on discharge 36 minutes in counseling, documentation, chart review, and direct care with patient. Exam Data for Last 24 hours Vital signs and Labs for Last 24 Hours: Temp Pulse Resp BP Pulse Ox O2 Del Method O2 Flow Rate 97.5 F L 111 H 18 120/87 95 Nasal Cannula 2 09/01/24 12:00 09/01/24 12:00 09/01/24 12:00 09/01/24 12:00 09/01/24 12:00 09/01/24 15:20 09/01/24 15:20 FiO2 40 08/31/24 11:31 Laboratory Results - last 24 hr 09/01/24 06:32: WBC 9.6, RBC 5.05, Hgb 15.3, Hct 47.1 H, MCV 93.3, MCH 30.3, MCHC 32.5, RDW 13.4, Plt Count 134 L, MPV 10.2, Neut % (Auto) 74.9, Lymph % (Auto) 10.3, Hudspeth % (Auto) 14.5 H, Eos % (Auto) 0.0 L, Baso % (Auto) 0.1, Neut # (Auto) 7.2, Lymph # (Auto) 1.0, Hudspeth # (Auto) 1.4 H, Eos # (Auto) 0.0, Baso # (Auto) 0.0, Sodium 141, Potassium 3.5, Chloride 98, Carbon Dioxide 38 H, Anion Gap 8.5, BUN 51 H, Creatinine 1.50 H, Estimated Creat Clear 34, Estimated GFR 34 L, Est GFR ( Amer) 41 L, Glucose 91, Calcium 8.7, Magnesium 2.8 H, Total Bilirubin 0.7, AST 37 H D, ALT 26, Alkaline Phosphatase 69, NT-Pro-B Natriuret Pep 40736 H, Total Protein 6.2 L, Albumin 3.6 D, Globulin 2.6, Albumin/Globulin Ratio 1.4 I & O for Last 24 hours: Intake & Output 08/29/24 08/30/24 08/31/24 09/01/24 23:59 23:59 23:59 23:59 Intake Total 60 / 160 220 / 620 1380 / 1620 440 / 440 Output Total 900 / 900 550 / 550 400 / 400 0 / 0 Balance -840 / -740 -330 / 70 980 / 1220 440 / 440 Weight 67.217 kg 66.86 kg 64.501 kg 69.49 kg Constitutional Constitutional: no acute distress, average body habitus, chronically ill appearing and cooperative *Routine HEENT Exam Head: Present normocephalic Eye: Present EOMI and PERRL ENT: Present mucous membranes moist *Routine Neck Exam Neck: Present supple; Absent lymphadenopathy *Routine Respiratory Exam Respiratory: Present prolonged expiratory phase, wheezes and distant breath sounds; Absent rhonchi or crackles *Routine Cardiovascular Exam Cardiovascular: Present RRR *Routine Abdominal Exam Abdominal: Present soft and normoactive bowel sounds; Absent tenderness *Routine Rectal Exam Patient deferred: visual exam *Routine Exam Patient deferred: external exam *Routine Extremities Exam Extremities: Absent cyanosis, clubbing or edema *Routine Skin Exam Skin: Present warm; Absent rash *Routine Neurological Exam Neurological: Present alert, oriented X3 and moving all extremities; Absent altered mental status Results Data Completed and Pending Labs on day of discharge: Labs from last 24 hours 09/01/24 06:32 WBC 9.6 RBC 5.05 Hgb 15.3 Hct 47.1 H MCV 93.3 MCH 30.3 MCHC 32.5 RDW 13.4 Plt Count 134 L MPV 10.2 Neut % (Auto) 74.9 Lymph % (Auto) 10.3 Hudspeth % (Auto) 14.5 H Eos % (Auto) 0.0 L Baso % (Auto) 0.1 Neut # (Auto) 7.2 Lymph # (Auto) 1.0 Hudspeth # (Auto) 1.4 H Eos # (Auto) 0.0 Baso # (Auto) 0.0 Sodium 141 Potassium 3.5 Chloride 98 Carbon Dioxide 38 H Anion Gap 8.5 BUN 51 H Creatinine 1.50 H Estimated Creat Clear 34 Estimated GFR 34 L Est GFR ( Amer) 41 L Glucose 91 Calcium 8.7 Magnesium 2.8 H Total Bilirubin 0.7 AST 37 H D ALT 26 Alkaline Phosphatase 69 NT-Pro-B Natriuret Pep 01707 H Total Protein 6.2 L Albumin 3.6 D Globulin 2.6 Albumin/Globulin Ratio 1.4 Preliminary micro results at discharge 08/29/24 06:33 Blood Culture - Preliminary Blood NO GROWTH AFTER 48 HOURS 08/29/24 06:25 Blood Culture - Preliminary Blood NO GROWTH AFTER 48 HOURS DS: Diagnosis Discharge Diagnosis (1) Acute respiratory failure with hypoxia and hypercarbia: Status: Acute Code(s): J96.01 - Acute respiratory failure with hypoxia; J96.02 - Acute respiratory failure with hypercapnia (2) Influenza A with pneumonia: Status: Acute Code(s): J09.X1 - Influenza due to identified novel influenza A virus with pneumonia (3) COPD exacerbation: Status: Acute Code(s): J44.1 - Chronic obstructive pulmonary disease with (acute) exacerbation (4) Paroxysmal atrial fibrillation: Status: Acute Code(s): I48.0 - Paroxysmal atrial fibrillation (5) Infrarenal abdominal aortic aneurysm (AAA) without rupture: Status: Acute Code(s): I71.43 - Infrarenal abdominal aortic aneurysm, without rupture (6) Altered mental status: Status: Acute Code(s): R41.82 - Altered mental status, unspecified Meds Home Medications and Allergies Home Medications ?Medication ?Instructions ?Recorded ?Confirmed ?Type bumetanide 1 mg tablet 1 mg PO DAILY 08/29/24 08/29/24 History famotidine 20 mg tablet 20 mg PO DAILY 08/29/24 08/29/24 History febuxostat 40 mg tablet 40 mg PO DAILY 08/29/24 08/29/24 History gabapentin 300 mg capsule 300 mg PO DAILY 08/29/24 08/29/24 History levocetirizine 5 mg tablet 5 mg PO BID 08/29/24 08/29/24 History metoprolol succinate 100 mg 100 mg PO DAILY 08/29/24 08/29/24 History tablet,extended release 24 hr rivaroxaban 15 mg tablet (Xarelto) 15 mg PO QPMWITHMEAL 08/29/24 08/29/24 History rosuvastatin 20 mg tablet 20 mg PO HS 08/29/24 08/29/24 History tramadol 50 mg tablet 50 mg PO TID PRN Pain, Moderate 08/29/24 08/29/24 History azithromycin 250 mg tablet 500 mg (2 x 250 mg) PO DAILY 1 day 09/01/24 Rx #2 tabs cefdinir 300 mg capsule 300 mg PO BID 2 days #4 caps 09/01/24 Rx fluticasone fur. 100 mcg-umeclid 1 inh inhalation DAILY 30 days #60 09/01/24 Rx 62.5 mcg-vilant 25 mcg ea inhalat.powder (Trelegy Ellipta) oseltamivir 6 mg/mL oral 30 mg (5 mL) PO BID 2 days #0 mL 09/01/24 Rx suspension (Tamiflu) sacubitril 24 mg-valsartan 26 mg 1 tab PO BID 30 days #60 tabs 09/01/24 Rx tablet (Entresto) spironolactone 25 mg tablet 25 mg PO DAILY 30 days #30 tabs 09/01/24 Rx New Prescriptions to Start Prescriptions: Dg Kothari cefdinir Dg Fulton [id number] [Trelegy Ellipta] Dg Fulton sacubitril-valsartan [Entresto] Dg Fulton spironolactone Dg Fulton Allergies Allergy/AdvReac Type Severity Reaction Status Date / Time bee venom protein (honey bee) Allergy Hives Verified 08/29/24 09:45 hydromorphone (From Dilaudid) Allergy Rash Verified 08/29/24 09:45 Discharge Plan Disposition Patient Disposition: Home Health Service Condition: Fair Discharge Order Discharge Orders: Discharge Order (Routine); Ordered 09/01/24 Ordered By: Dg Fulton Follow up Plan Follow up with: Mariam Chairez DO [Primary Care Provider] - 09/03/24 1:20 pm Carleen Samano MD [Physician] - 09/28/24 1:00 pm Magdy Singh MD [Staff Physician] - 09/13/24 2:00 pm Prescriptions/Medication Reconciliation: New azithromycin 250 mg Tablet 500 mg PO DAILY 1 Days Qty: 2 0RF Rx Instructions: take morning of 09/02/24 Trelegy Ellipta 100-62.5-25 mcg Blister With Device 1 inh inhalation DAILY 30 Days Qty: 60 0RF spironolactone 25 mg Tablet 25 mg PO DAILY 30 Days Qty: 30 0RF oseltamivir [Tamiflu] 6 mg/mL Suspension For Reconstitution 30 mg PO BID 2 Days Qty: 0 0RF sacubitril-valsartan [Entresto] 24-26 mg Tablet 1 tab PO BID 30 Days Qty: 60 0RF cefdinir 300 mg capsule 300 mg PO BID 2 Days Qty: 4 0RF Continued metoprolol succinate 100 mg Tablet Extended Release 24 Hr 100 mg PO DAILY tramadol 50 mg Tablet 50 mg PO TID PRN (Reason: Pain, Moderate) famotidine 20 mg Tablet 20 mg PO DAILY gabapentin 300 mg Capsule 300 mg PO DAILY bumetanide 1 mg Tablet 1 mg PO DAILY rosuvastatin 20 mg Tablet 20 mg PO HS febuxostat 40 mg Tablet 40 mg PO DAILY Xarelto 15 mg Tablet 15 mg PO QPMWITHMEAL levocetirizine 5 mg tablet 5 mg PO BID Patient Comments: TAKE 1 TABLET BY MOUTH 2 TIMES DAILY FOR 90 DAYS. * INSURANCE WILL ONLY PAY FOR 1 TABLET DAILY Problem Reconciliation Problems Reviewed?: Yes Patient Discharge Instructions ACTIVITY: Continue current activity DIET: continue same diet Patient Instructions: Influenza (Alternative Therapy), DI for Chronic Obstructive Pulmonary Disease, DI for Respiratory Failure, DI for Altered Mental Status Print Language: [place] Providers Primary Care Provider: Mariam Chairez Admit Provider: Maverick Stout Attending Provider: Maverick Stout
--- NOTE | 2024-09-03 10:21 | SW/DCPLANNER ---
Phoned patient x2. Patient didnt answer. left message with call back number. Suzette Vera
--- NOTE | 2024-09-06 14:00 | CARE MANAGER ---
Sent referral [facility] neuro, Dr. Charles, for follow up appointment as recommended when consulted as inpatient.
== END 2024-09-01 16:38 | disposition home health service (06) | DRG 70 ==
LOC: ER 08:02 → ICU 11:36 → 2ND 08-31 15:47
PROVIDERS: Nurse Practitioner Acute Care; Physician Assistant; Admitting Provider Student in an Organized Health Care Education/Training Program; Emergency Provider Emergency Medicine; PCP Student in an Organized Health Care Education/Training Program; Visit Provider Student in an Organized Health Care Education/Training Program
DX: G93.41 Metabolic encephalopathy (principal); J96.21 Acute and chronic respiratory failure with hypoxia; J96.22 Acute and chronic respiratory failure with hypercapnia; I50.22 Chronic systolic (congestive) heart failure; J44.1 Chronic obstructive pulmonary disease with (acute) exacerbation; F17.210 Nicotine dependence, cigarettes, uncomplicated; I48.0 Paroxysmal atrial fibrillation; I71.43 Infrarenal abdominal aortic aneurysm, without rupture; I70.1 Atherosclerosis of renal artery; I27.20 Pulmonary hypertension, unspecified; I70.0 Atherosclerosis of aorta; E78.5 Hyperlipidemia, unspecified; I34.0 Nonrheumatic mitral (valve) insufficiency; J10.81 Influenza due to other identified influenza virus with encephalopathy; I49.3 Ventricular premature depolarization; E21.3 Hyperparathyroidism, unspecified; Z80.9 Family history of malignant neoplasm, unspecified; Z90.49 Acquired absence of other specified parts of digestive tract; Z86.73 Personal history of transient ischemic attack (TIA), and cerebral infarction without residual deficits; Z79.899 Other long term (current) drug therapy; Z79.01 Long term (current) use of anticoagulants; Z79.891 Long term (current) use of opiate analgesic; Z88.5 Allergy status to narcotic agent; Z91.030 Bee allergy status; Z91.148 Patient's other noncompliance with medication regimen for other reason; Z74.1 Need for assistance with personal care
CPT/HCPCS: 36415; 70450; 70551; 71045; 71275; 80053; 80061; 81001; 82803; 83036; 83605; 83735; 83880; 84439; 84443; 84484; 85025; 85610; 87040; 87633; 93005; 93306; 94640; 97110; 97163; 97166; 97530; 97535; 99291; J0456; J0696; J1939; J2919; J3475; J7050; J7614; J7620; J7644; Q9967

== ENCOUNTER 2024-09-18 11:52 | Emergency (ER) | payer MEDICARE, SELFPAY ==
[2024-09-18 11:53] VITALS: BP 84/55; PULSE 55; RESP 18; TEMP 36.8; O2SAT 92; BMI 28.3
--- NOTE | 2024-09-18 12:04 | PC.NURSE ---
Marzena Brooke APRN at bedside
--- NOTE | 2024-09-18 12:09 | ED_ITS ---
<Statement entered by Steff Mittal MD - 09/26/24 15:26> I was consulted by the ROCK, and we discussed the complexity of the problems being addressed. I approved the treatment and management plan for this patient's care in the emergency department, thus performing a substantive portion of the medical decision making. Steff Mittal MD, CRISTIAN, FACEP Discharge Plan Disposition Patient Disposition: Home, Self-Care Condition: Good Chief Complaint: Wound/Laceration Prescriptions Prescriptions: No Action diltiazem HCl 180 mg capsule,extended release 24hr 180 mg PO DAILY Patient Comments: TAKE 1 CAPSULE BY MOUTH DAILY. famotidine 40 mg tablet 40 mg PO DAILY Patient Comments: TAKE 1 TABLET BY MOUTH EVERY EVENING. metoprolol succinate 100 mg Tablet Extended Release 24 Hr 100 mg PO DAILY tramadol 50 mg Tablet 50 mg PO TID PRN (Reason: Pain, Moderate) gabapentin 300 mg Capsule 300 mg PO DAILY rosuvastatin 20 mg Tablet 20 mg PO HS febuxostat 40 mg Tablet 40 mg PO DAILY Xarelto 15 mg Tablet 15 mg PO QPMWITHMEAL levocetirizine 5 mg tablet 5 mg PO BID Patient Comments: TAKE 1 TABLET BY MOUTH 2 TIMES DAILY FOR 90 DAYS. * INSURANCE WILL ONLY PAY FOR 1 TABLET DAILY Trelegy Ellipta 100-62.5-25 mcg Blister With Device 1 inh inhalation DAILY 30 Days Qty: 60 0RF spironolactone 25 mg Tablet 25 mg PO DAILY 30 Days Qty: 30 0RF sacubitril-valsartan [Entresto] 24-26 mg Tablet 1 tab PO BID 30 Days Qty: 60 0RF Referrals Follow up/Referrals: Mariam Chairez DO [Primary Care Provider] - See instructions Activity Restrictions/Add. Instructions Additional Instructions/Restrictions: if bleeding starts retrurn follow up with derm Clinical Impressions Clinical Impression: S/P skin biopsy Instructions Patient Instructions: DI for Skin Biopsy, Skin Biopsy Print Language Print Language: Ukrainian Discharge ED Provider: Steff Mittal General Adult HPI General Chief complaint: Wound/Laceration Stated complaint: bleeding biopsy site, mid back, on blood thinners Time Seen by Provider: 09/18/24 12:01 Mode of Arrival: Wheelchair Source of Information: Patient and Relative Description of Symptoms (Recalled from ER Triage Doc. by RN): Patient presents via a wheelchair to triage with niece. Patient recently underwent a skin biopsy on her back two days ago. States she is on a blood thinner but does not know which one. States it started bleeding yesterday and her family was able to get it to stop. States it started again this morning. Niece states she is a medical center and endorses, There was a lot of blood so we just brought her here. Bleeding appears to be controlled in triage. Assessment of wound deferred to provider. History of Present Illness HPI narrative: 79 yr old female presents for bleeding from skin biopsy site to lower back. pt states she takes a blood thinner. Pt/family states 2 days ago she had a skin bx done. pt/family states the first day the site did well but last night and this morning the site has been bleeding saturating bandages. Related Data Home Medications ?Medication ?Instructions ?Recorded ?Confirmed febuxostat 40 mg tablet 40 mg PO DAILY 08/29/24 09/18/24 gabapentin 300 mg capsule 300 mg PO DAILY 08/29/24 09/18/24 levocetirizine 5 mg tablet 5 mg PO BID 08/29/24 09/18/24 metoprolol succinate 100 mg 100 mg PO DAILY 08/29/24 09/18/24 tablet,extended release 24 hr rivaroxaban 15 mg tablet (Xarelto) 15 mg PO QPMWITHMEAL 08/29/24 09/18/24 rosuvastatin 20 mg tablet 20 mg PO HS 08/29/24 09/18/24 tramadol 50 mg tablet 50 mg PO TID PRN Pain, Moderate 08/29/24 09/18/24 diltiazem HCl 180 mg 180 mg PO DAILY 09/18/24 09/18/24 capsule,extended release 24 hr famotidine 40 mg tablet 40 mg PO DAILY 09/18/24 09/18/24 Previous Rx's ?Medication ?Instructions ?Recorded fluticasone fur. 100 mcg-umeclid 1 inh inhalation DAILY 30 days #60 09/01/24 62.5 mcg-vilant 25 mcg ea inhalat.powder (Trelegy Ellipta) sacubitril 24 mg-valsartan 26 mg 1 tab PO BID 30 days #60 tabs 09/01/24 tablet (Entresto) spironolactone 25 mg tablet 25 mg PO DAILY 30 days #30 tabs 09/01/24 Allergies Allergy/AdvReac Type Severity Reaction Status Date / Time bee venom protein (honey bee) Allergy Hives Verified 08/29/24 09:45 hydromorphone (From Dilaudid) Allergy Rash Verified 08/29/24 09:45 [facility] Disclaimer: The information contained in this section may have been updated after the patient was seen, as this information can be updated by other users. Medical History , SURVEY AND MAPPING TECHNICIAN) Influenza A with pneumonia AAA (abdominal aortic aneurysm) HFrEF (heart failure with reduced ejection fraction) Hyperparathyroidism Purpura senilis Peripheral artery disease Renal artery stenosis Allergies Pulmonary hypertension Nonrheumatic mitral valve regurgitation Coronary artery disease Renal osteodystrophy Thoracic aorta atherosclerosis Atrial fibrillation Kidney stone Chronic kidney disease Pneumonia COPD (chronic obstructive pulmonary disease) History of stroke Dementia Osteoarthritis Hemorrhoids Aneurysm History of cataract Hyperlipidemia Hypertension History of left heart catheterization (LHC) Surgical History , SURVEY AND MAPPING TECHNICIAN) H/O ovarian cystectomy H/O tubal ligation History of cholecystectomy Family History , SURVEY AND MAPPING TECHNICIAN) Family history of cancer Social History , SURVEY AND MAPPING TECHNICIAN) Smoking Status: Current every day smoker alcohol intake: never current occupational status: retired and other Travel in the last 8 weeks: None Have you lived/traveled outside US in past 30 days?: No Contact w/someone who lives/traveled outside US past 30 days?: No Exposure to someone with infectious disease in past 14 days?: No Do you have a fever (greater than 100.4 F or 38 C)?: No Have you tested positive for COVID-19: No Exposed to someone with COVID-19 in past 14 days?: No Do you have a sore throat?: No Do you have a cough?: No Do you have any weakness?: No Do you have any diarrhea?: No Are you experiencing any unusual bleeding?: No Do you have any muscle aches/pain?: No Do you have any abdominal pain?: No Are you experiencing loss of taste or smell?: No Other Medical History Have you received the Flu Vaccine for this season: No Have you received the Pneumonia Vaccine: No ROS Obtained: Yes Systems reviewed as appropriate & no additional complaints except as documented Integumentary/Breasts Skin/Breast: Reports system reviewed and no additional complaints, except as documented and Reports as per HPI Physical Exam General General appearance: alert and in no apparent distress Head Head exam: atraumatic Eye Eye exam: Present normal appearance and PERRL ENT ENT exam: Present normal exam Respiratory Respiratory exam: Present normal lung sounds bilaterally Cardiovascular Cardiovascular exam: Present irregular rhythm Back Exam Back 1 view image: 2 1. punch bx, clot present, bleeding has stopped Neurological Exam Neurological exam: Present alert and oriented X3 Skin Skin exam: Present warm Medical Decision Making Medical Records Medical records reviewed: Yes I reviewed the patient's medical records. Screening: Per USPSTF and CDC recommendations, given the prevalence of disease in our region, it is our hospital?s policy to screen for HIV and viral Hepatitis for all patients aged 18 and over and those with ongoing risk factors. Mckay Inquiry Pt receiving controlled substance: No Mckay was queried for this patient: No Vital Signs: 09/18/24 11:53 09/18/24 12:20 Temperature 98.2 F Temperature Source Oral Pulse Rate 55 L Pulse Rate [Radial] 55 L Respiratory Rate 18 18 Blood Pressure 96/65 L Blood Pressure [R Arm] 84/55 L Blood Pressure Mean 69 Blood Pressure Mean [R Arm] 64 Blood Pressure Source [R Arm] Automatic Cuff 02 Sat by Pulse Oximetry 92 L 94 L Oxygen Delivery Method Room Air Nasal Cannula Oxygen Flow Rate (LPM) 2 Fraction of Inspired Oxygen 3 Lab Data Lab results reviewed: Yes I reviewed the patient's lab results. Lab Results 09/18/24 12:28: WBC 6.6, RBC 4.28, Hgb 12.8, Hct 40.7, MCV 95.1, MCH 29.9, MCHC 31.4 L, RDW 13.4, Plt Count 174, MPV 9.5, Neut % (Auto) 64.7, Lymph % (Auto) 17.1, Gage % (Auto) 15.1 H, Eos % (Auto) 2.0, Baso % (Auto) 0.9, Neut # (Auto) 4.3, Lymph # (Auto) 1.1, Gage # (Auto) 1.0, Eos # (Auto) 0.1, Baso # (Auto) 0.1 09/18/24 12:28 Orders (Tests/Meds): ORDERS Category Date Time Status CBC [Complete Blood Count Auto Diff] Stat Lab 09/18/24 12:28 Completed CMP [Comprehensive Metabolic Panel] Stat Lab 09/18/24 12:10 Stop Req HIV Combo Stat Lab 09/18/24 12:07 Ordered Hepatitis C Ab Qual. W/ RFX Stat Lab 09/18/24 12:07 Ordered Medical Decision Narrative: In summary patient is a 79 yr old female who presents to the emergency department for evaluation of bleeding from punch bx site. Patient is hemodynamically stable upon arrival, afebrile, bleeding had stopped. Unremarkable physical exam. cornell in place saturated in blood. Differential diagnosis includes low blood pressure, blood loss. Initial workup will be conducted with hematologic labs, Initial inventions include labs- pt/family refuse IV. Initial workup reviewed by H\H echo. Pt /family want to leave. Given this patient was appropriate for discharge at this time and will be discharged with close monitoring of site. return if any concerns or bleeding restarts. Procedures Miscellaneous Procedure Procedure Performed: abd pad placed under pressure Critical Care Critical Care Time Critical Care Time: No
[2024-09-18 12:20] VITALS: BP 96/65; PULSE 55; RESP 18; O2SAT 94
--- NOTE | 2024-09-18 12:30 | PC.NURSE ---
Able to obtain CBC via phlebotomy. Pt refused IV, stating We only want her blood counts. No IV . I let them know pt may need an IV if values are low and niece states, We are only going to check her blood counts today . [employer] notified of pt/family requests.
[2024-09-18 12:34] LABS: Basophils # 0.1 K/mm3 (0-0.2); Basophils % 0.9 % (0.1-2.0); Eosinophils # 0.1 K/mm3 (0.0-0.4); Hematocrit 40.7 % (37.0-47.0); Hemoglobin 12.8 g/dL (12.2-16.2); Lymphocytes # 1.1 K/mm3 (0.7-4.5); Lymphocytes % 17.1 % (10-50); Mean Corpuscular HGB Conc 31.4 g/dL (31.8-35.4); Mean Corpuscular Hemoglobin 29.9 pg (27.0-31.2); Mean Corpuscular Volume 95.1 fl (81-99); Mean Platelet Volume 9.5 fl (7.4-10.4); Monocytes % 15.1 % (1.7-9.3); Neutrophils # 4.3 K/mm3 (1.8-7.8); Neutrophils % 64.7 % (37.0-80.0); Platelet Count 174 K/mm3 (142-424); Red Blood Count 4.28 M/mm3 (4.20-5.40); Red Cell Distribution Width 13.4 % (11.5-17.5); White Blood Count 6.6 K/mm3 (4.8-10.8)
[2024-09-18 12:57] VITALS: BP 96/65; PULSE 55; RESP 20; TEMP 36.8; O2SAT 94
== END 2024-09-18 12:58 | disposition home or self-care (01) ==
PROVIDERS: Nurse Practitioner Family; Emergency Provider Student in an Organized Health Care Education/Training Program; PCP Student in an Organized Health Care Education/Training Program
DX: L76.22 Postprocedural hemorrhage of skin and subcutaneous tissue following other procedure (principal); Z98.890 Other specified postprocedural states; Z79.01 Long term (current) use of anticoagulants; Z72.0 Tobacco use
CPT/HCPCS: 85025; 99281; 99283